=== PATIENT | female | born 1980 | race Caucasian/White ===

== ENCOUNTER 2016-12-25 15:57 | Emergency (ER) | payer BC | END 2016-12-25 17:34 | disposition left against medical advice (07) | LOC: UCCORT 15:57 | DX: M25.511 Pain in right shoulder (principal) ==

== ENCOUNTER 2016-12-25 18:27 | Emergency (ER) | payer BC ==
[2016-12-25 20:05] VITALS: BP 136/84
[2016-12-25] MEDS ORDERED: Ibuprofen TAB* 600 MG PO ONE (20:25)
--- NOTE | 2016-12-25 20:32 | UC ---
Shoulder Pain HPI - HPI Summary HPI Summary: 36 yo female with chronic right shoulder pain now with 5 day hx of decreased ROM and increased pain - History of Current Complaint Chief Complaint: UCUpperExtremity Stated Complaint: RT SHOULDER -NO RANGE OF MOTION Time Seen by Provider: 12/25/16 20:18 Hx Obtained From: Patient Hx Last Menstrual Period: 11/14/16, but she bleed for 5 weeks Onset/Duration: Gradual Onset, Lasting Weeks, Worse Since - 5 days Timing: Constant Severity Initially: Mild Severity Currently: Moderate Location Of Pain: Is Diffuse Pain Intensity: 6 Pain Scale Used: 0-10 Numeric Character: Aching, Spasmodic Aggravating Factor(s): Movement Alleviating Factor(s): Rest, OTC Meds Related History: Similar Episode/Dx As - Frozen shoulder, Dominant Hand Right - Allergies/Home Medications Allergies/Adverse Reactions: Allergies Allergy/AdvReac Type Severity Reaction Status Date / Time No Known Allergies Allergy Verified 03/30/16 17:16 PMH/Surg Hx/FS Hx/Imm Hx Endocrine History Of: Reports: Diabetes, Thyroid Disease - Hypothyroidism Cardiovascular History Of: Reports: Hypertension - Surgical History Surgical History: Yes Surgery Procedure, Year, and Place: tonsillectomy. 2003 - Family History Known Family History: Positive: Hypertension, Diabetes - Social History Alcohol Use: Weekly Alcohol Amount: 2 times a week Substance Use Type: None Smoking Status (MU): Former Smoker Type: Cigarettes Amount Used/How Often: 5 per day Length of Time of Smoking/Using Tobacco: 15 yrs Have You Smoked in the Last Year: Yes When Did the Patient Quit Smoking/Using Tobacco: 09/05/2015 - Immunization History Most Recent Influenza Vaccination: [id number] Most Recent Tetanus Shot: UNKNOWN Review of Systems Constitutional: Negative Skin: Negative Eyes: Negative ENT: Negative Respiratory: Negative Cardiovascular: Negative Gastrointestinal: Negative Genitourinary: Negative Motor: Negative Neurovascular: Negative Musculoskeletal: Arthralgia, Decreased ROM Neurological: Negative Psychological: Negative All Other Systems Reviewed And Are Negative: Yes Physical Exam Triage Information Reviewed: Yes Appearance: Well-Appearing, No Pain Distress, Well-Nourished Vital Signs: Initial Vital Signs Pulse 85 12/25/16 20:00 Resp 16 12/25/16 20:00 BP 136/84 12/25/16 20:00 Pulse Ox 98 12/25/16 20:00 Vital Signs Reviewed: Yes Eyes: Positive: Conjunctiva Clear ENT: Negative: Hearing grossly normal, Pharynx normal, Pharyngeal erythema, Nasal congestion, Nasal drainage, TMs normal, TM bulging, TM dull, TM red, Tonsillar swelling, Tonsillar exudate, Trismus, Muffled/hoarse voice Dental: Negative: Dental Fracture @, Abscess @ Neck: Positive: Supple, Nontender Respiratory: Positive: Lungs clear, Normal breath sounds, No respiratory distress Cardiovascular: Positive: RRR, No Murmur Musculoskeletal: Positive: ROM Limited @ - right shoulder-able to abduct to 45 degrees Neurological Exam: Normal Neurological: Positive: Alert, Fatigued Psychological Exam: Normal Skin Exam: Normal Shoulder Course/Dx - Differential Dx/Diagnosis Provider Diagnoses: right shoulder tendonitis. adhesive capsilitis Discharge - Discharge Plan Condition: Stable Disposition: HOME Prescriptions: Naproxen [Naproxen 500 MG TABS] 500 mg PO BID PRN #20 tab PRN Reason: Pain Patient Education Materials: Adhesive Capsulitis (ED), Tendinitis (ED) Referrals: Jhoan Martinez MD [Medical Doctor] - As Soon As Possible Additional Instructions: heat range of motion massage see orthopedist Images Front/Back of Body, Lg (Rapides): 1 - tender her, pain with external rotation
--- NOTE | 2016-12-25 21:01 | RAD ---
Indication: Right shoulder pain, decreased range of motion. 3 views of the right shoulder demonstrates no fracture. No other bone or joint abnormality is identified. IMPRESSION: No fracture of the right shoulder is noted.
== END 2016-12-25 21:04 | disposition home or self-care (01) ==
LOC: UCCORT 18:27
DX: M75.01 Adhesive capsulitis of right shoulder (principal); Z87.891 Personal history of nicotine dependence
CPT/HCPCS: 99212; A9270-GY; G0463

== ENCOUNTER 2017-04-05 14:08 | Emergency (ER) | payer BC ==
--- NOTE | 2017-04-05 14:26 | UC ---
Skin Complaint HPI - HPI Summary HPI Summary: had a hang nail last week pulled it off and now has pain and swelling around nail - History of Current Complaint Time Seen by Provider: 04/05/17 14:23 Stated Complaint: LEFT INDEX FINGER PAIN Hx Obtained From: Patient Hx Last Menstrual Period: 11/14/16, but she bleed for 5 weeks ?: No Onset/Duration: Sudden Onset, Lasting Weeks - 1, Still Present Timing: Constant Onset Severity: Mild Current Severity: Moderate Pain Intensity: 7 Pain Scale Used: 0-10 Numeric Character: Swelling, Pain, Redness Aggravating: Touch Alleviating: Nothing Associated Signs & Symptoms: Positive: Negative Related History: Trauma - Allergy/Home Medications Allergies/Adverse Reactions: Allergies Allergy/AdvReac Type Severity Reaction Status Date / Time Lisinopril Allergy Coughing Verified 04/05/17 14:38 Home Medications: Home Medications Ferrous Sulfate [Iron (Ferrous Sulfate)] 50 mg PO DAILY 04/05/17 [History Confirmed 04/05/17] Liraglutide (NF) [Victoza (NF)] 1.8 mg SUBCUT DAILY 04/05/17 [History Confirmed 04/05/17] Review of Systems Constitutional: Negative Skin: Other - erythema around left index finger nail bed with purulent drainage Eyes: Negative ENT: Negative Respiratory: Negative Cardiovascular: Negative Gastrointestinal: Negative Genitourinary: Negative Motor: Negative Neurovascular: Negative Musculoskeletal: Negative Neurological: Negative Psychological: Negative All Other Systems Reviewed And Are Negative: Yes PMH/Surg Hx/FS Hx/Imm Hx Previously Healthy: No Endocrine History: Diabetes, Hypothyroidism, Dyslipidemia Cardiovascular History: Hypertension - Surgical History Surgical History: Yes Surgery Procedure, Year, and Place: tonsillectomy. 2003 - Family History Known Family History: Positive: Hypertension, Diabetes - Social History Occupation: Employed Full-time Lives: With Family Alcohol Use: Weekly Alcohol Amount: 2 times a week Substance Use Type: None Smoking Status (MU): Former Smoker Type: Cigarettes Amount Used/How Often: 5 per day Length of Time of Smoking/Using Tobacco: 15 yrs Have You Smoked in the Last Year: Yes When Did the Patient Quit Smoking/Using Tobacco: 09/05/2015 - Immunization History Most Recent Influenza Vaccination: [id number] Most Recent Tetanus Shot: UNKNOWN Physical Exam Triage Information Reviewed: Yes Appearance: Well-Appearing, No Pain Distress, Well-Nourished Vital Signs Reviewed: Yes Eye Exam: Normal Eyes: Positive: Conjunctiva Clear ENT Exam: Normal ENT: Positive: Normal ENT inspection, Hearing grossly normal, Pharynx normal, TMs normal. Negative: Nasal congestion, Nasal drainage, Tonsillar swelling, Tonsillar exudate, Trismus, Muffled/hoarse voice Dental Exam: Normal Neck exam: Normal Neck: Positive: Supple, Nontender Respiratory Exam: Normal Respiratory: Positive: Chest non-tender, No respiratory distress, No accessory muscle use Cardiovascular Exam: Normal Cardiovascular: Positive: RRR, Pulses Normal, Brisk Capillary Refill Musculoskeletal Exam: Normal Musculoskeletal: Positive: Strength Intact, ROM Intact, Edema @ - distal left index finger Neurological Exam: Normal Neurological: Positive: Alert, Muscle Tone Normal Psychological Exam: Normal Skin Exam: Normal Course/Dx - Course Course Of Treatment: warm compress/ soak, Keflex, follow with pcp - Differential Diagnoses - Skin Complaint Differential Diagnoses: Cellulitis, Impetigo, Local Allergic Reaction - Diagnoses Provider Diagnoses: Left index finger paronychia Discharge - Discharge Plan Condition: Stable Disposition: HOME Prescriptions: Cephalexin CAP* [Keflex CAP*] 500 mg PO QID #28 cap Patient Education Materials: Cephalexin (By mouth), Paronychia (ED), Warm Compress or Soak (ED) Referrals: Karlie Sainz MD [Primary Care Provider] - If Needed
[2017-04-05 14:44] VITALS: BP 116/63
== END 2017-04-05 14:47 | disposition home or self-care (01) ==
LOC: UCCORT 14:08
DX: L03.012 Cellulitis of left finger (principal); E11.9 Type 2 diabetes mellitus without complications; E03.9 Hypothyroidism, unspecified; E78.5 Hyperlipidemia, unspecified; I10 Essential (primary) hypertension; Z87.891 Personal history of nicotine dependence
CPT/HCPCS: 99212; G0463

== ENCOUNTER 2017-11-11 11:08 | Emergency (ER) | payer BC ==
[2017-11-11 13:23] VITALS: BP 145/81
--- NOTE | 2017-11-11 13:37 | UC ---
Respiratory Complaint HPI - HPI Summary HPI Summary: nasal congestion x 2 days + cough , body aches , no fever, + chills - History of Current Complaint Chief Complaint: UCRespiratory Stated Complaint: CONGESTION Time Seen by Provider: 11/11/17 13:20 Hx Obtained From: Patient Hx Last Menstrual Period: mirana ?: No Onset/Duration: Gradual Onset, Lasting Days - 2, Still Present Severity Initially: Moderate Severity Currently: Moderate Pain Intensity: 0 Character: Cough: Nonproductive Aggravating Factors: Exertion Alleviating Factors: Nothing Associated Signs And Symptoms: Positive: Chills, URI, Nasal Congestion. Negative: Fever, Wheezing, Hemoptysis, Dizziness, Calf Pain, Calf Swelling, Hoarseness, Sinus Discomfort - Allergies/Home Medications Allergies/Adverse Reactions: Allergies Allergy/AdvReac Type Severity Reaction Status Date / Time lisinopril Allergy Coughing Verified 11/11/17 13:23 Home Medications: Home Medications Ibuprofen 800 mg PO 11/11/17 [History] PMH/Surg Hx/FS Hx/Imm Hx Endocrine History: Diabetes, Hypothyroidism - Surgical History Surgical History: Yes Surgery Procedure, Year, and Place: tonsillectomy. 2003 - Family History Known Family History: Positive: Hypertension, Diabetes - Social History Alcohol Use: Weekly Alcohol Amount: 2 times a week Substance Use Type: None Smoking Status (MU): Current Some Day Smoker Type: Cigarettes Amount Used/How Often: 5 per day Length of Time of Smoking/Using Tobacco: 15 yrs Have You Smoked in the Last Year: Yes When Did the Patient Quit Smoking/Using Tobacco: 09/05/2015 - Immunization History Most Recent Influenza Vaccination: [id number] Most Recent Tetanus Shot: UNKNOWN Review of Systems Constitutional: Chills, Fatigue Skin: Negative Eyes: Negative ENT: Sore Throat, Nasal Discharge Respiratory: Cough Cardiovascular: Negative Gastrointestinal: Negative Is Patient Immunocompromised?: No All Other Systems Reviewed And Are Negative: Yes Physical Exam Triage Information Reviewed: Yes Appearance: Well-Appearing, No Pain Distress, Obese Vital Signs: Initial Vital Signs Temp 98.1 F 11/11/17 13:16 Pulse 93 11/11/17 13:16 Resp 18 11/11/17 13:16 BP 145/81 11/11/17 13:16 Pulse Ox 100 11/11/17 13:16 Vital Signs Reviewed: Yes Eye Exam: Normal Eyes: Positive: Conjunctiva Clear ENT: Positive: Normal ENT inspection, Hearing grossly normal, Pharynx normal, Nasal congestion, TMs normal Neck: Positive: Supple, Nontender, No Lymphadenopathy Respiratory: Positive: Chest non-tender, Lungs clear, Normal breath sounds Cardiovascular: Positive: RRR, No Murmur, Pulses Normal Skin Exam: Normal UC Diagnostic Evaluation - Laboratory O2 Sat by Pulse Oximetry: 100 Respiratory Course/Dx - Differential Dx/Diagnosis Provider Diagnoses: uri Discharge - Discharge Plan Condition: Stable Disposition: HOME Patient Education Materials: Upper Respiratory Infection (DC) Forms: *Work Release Referrals: Karlie Sainz MD [Primary Care Provider] - If Needed
== END 2017-11-11 13:41 | disposition home or self-care (01) ==
LOC: UCCORT 11:08
DX: J06.9 Acute upper respiratory infection, unspecified (principal); E11.9 Type 2 diabetes mellitus without complications; Z72.0 Tobacco use
CPT/HCPCS: 99212; G0463

== ENCOUNTER 2018-12-10 10:42 | Emergency (ER) | payer BC ==
[2018-12-10 11:11] VITALS: BP 131/71
--- NOTE | 2018-12-10 11:25 | UC ---
Hand/Wrist HPI - HPI Summary HPI Summary: 38 yo female back handed a table 2 days ago tender left 2nd MCP she is right handed - History Of Current Complaint Chief Complaint: UCUpperExtremity Stated Complaint: LEFT HAND INJURY (12/08/18) Time Seen by Provider: 12/10/18 11:15 Hx Obtained From: Patient Hx Last Menstrual Period: mirana Onset/Duration: Sudden Onset Severity Initially: Moderate Severity Currently: Moderate Pain Intensity: 2 Pain Scale Used: 0-10 Numeric Character Of Pain: Aching, Throbbing Aggravating Factor(s): Movement Alleviating Factor(s): Rest Associated Signs And Symptoms: Positive: Swelling Related History: Dominant Hand Right Hands: 1 - tender/swollen - Allergies/Home Medications Allergies/Adverse Reactions: Allergies Allergy/AdvReac Type Severity Reaction Status Date / Time lisinopril Allergy Coughing Verified 11/11/17 13:23 Home Medications: Home Medications Diazepam TAB(*) [Valium TAB(*)] 10 mg PO Q8H PRN 12/10/18 [History Confirmed 04/23] Ibuprofen TAB* [Advil TAB*] 600 - 800 mg PO Q6H PRN 12/10/18 [History Confirmed 12/10/18] Levothyroxine TAB* [Synthroid TAB*] 125 mcg PO DAILY 12/10/18 [History Confirmed 12/10/18] PMH/Surg Hx/FS Hx/Imm Hx Previously Healthy: Yes Endocrine History: Diabetes, Dyslipidemia Cardiovascular History: Hypertension - Surgical History Surgical History: Yes Surgery Procedure, Year, and Place: Left Vitrectomy, 2018, [place]; , 2003; Tonsillectomy, ~1992 - Family History Known Family History: Positive: Hypertension, Diabetes - Social History Alcohol Use: Weekly Alcohol Amount: 2 times a week Substance Use Type: None Smoking Status (MU): Former Smoker Type: Cigarettes Amount Used/How Often: 5 per day Length of Time of Smoking/Using Tobacco: 10/09 PPD x 15 Years Have You Smoked in the Last Year: Yes When Did the Patient Quit Smoking/Using Tobacco: 09/05/2015 - Immunization History Most Recent Influenza Vaccination: [id number] Most Recent Tetanus Shot: UNKNOWN Review of Systems All Other Systems Reviewed And Are Negative: Yes Constitutional: Positive: Negative Skin: Positive: Negative Eyes: Positive: Negative ENT: Positive: Negative Respiratory: Positive: Negative Cardiovascular: Positive: Negative Gastrointestinal: Positive: Negative Genitourinary: Positive: Negative Motor: Positive: Negative Neurovascular: Positive: Negative Musculoskeletal: Positive: Arthralgia - left 2nd MCP Neurological: Positive: Negative Psychological: Positive: Negative Physical Exam Triage Information Reviewed: Yes Appearance: Well-Appearing, No Pain Distress, Well-Nourished Vital Signs: Initial Vital Signs Temp 98.2 F 12/10/18 11:04 Pulse 88 12/10/18 11:04 Resp 18 12/10/18 11:04 BP 131/71 12/10/18 11:04 Pulse Ox 100 12/10/18 11:04 Vital Signs Reviewed: Yes Eyes: Positive: Conjunctiva Clear ENT: Positive: Hearing grossly normal. Negative: Nasal congestion, Nasal drainage, Trismus, Muffled voice, Hoarse voice Neck: Positive: Supple, Nontender, No Lymphadenopathy Respiratory: Positive: Lungs clear, Normal breath sounds, No respiratory distress Cardiovascular: Positive: RRR, No Murmur Musculoskeletal: Positive: ROM Intact, Edema @ - see image Neurological: Positive: Alert Psychological Exam: Normal Skin Exam: Normal Diagnostics - Radiology No standard instances Radiology Interpretation Completed By: ED Physician Summary of Radiographic Findings: no fx Hand/Wrist Course/Dx - Differential Dx/Diagnosis Provider Diagnosis: Contusion of left hand Discharge - Sign-Out/Discharge Documenting (check all that apply): Patient Departure All imaging exams completed and their final reports reviewed: Yes - Discharge Plan Condition: Stable Disposition: HOME Patient Education Materials: Contusion in Adults (ED) Referrals: Yanet Sims NP [Primary Care Provider] - 2 Weeks (if not better) - Billing Disposition and Condition Condition: STABLE Disposition: Home
== END 2018-12-10 11:52 | disposition home or self-care (01) ==
LOC: UCCORT 10:42
DX: S60.222A Contusion of left hand, initial encounter (principal); E11.9 Type 2 diabetes mellitus without complications; I10 Essential (primary) hypertension; Z87.891 Personal history of nicotine dependence; Z88.8 Allergy status to other drugs, medicaments and biological substances; W22.03XA Walked into furniture, initial encounter; Y92.9 Unspecified place or not applicable
CPT/HCPCS: 99211; G0463

== ENCOUNTER 2019-05-23 18:46 | Emergency (ER) | payer BC ==
--- OUTSIDE RECORDS SUMMARY | 2019-05-23 18:55 | XMS REPORT | Continuity of Care Document ---
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 Onset: 02/08/2014 Hypothyroidism Sherin Armas M.D. Onset: 06/20/2015 Shoulder joint pain Simon Tinoco M.D. Onset: 03/27/2016 Diabetic macular edema Klaudia Sims FNP Onset: 05/09/2016 Note: Sees [facility] Allergic rhinitis Bianca Braun, WILMA-EHSAN, YANNA, Onset: 08/12/2016 Ibclc Nonalcoholic steatohepatitis ([place]) Klaudia Sims FNP Onset: 2016 Pure hypercholesterolemia Louisa Higginbotham MD Onset: 07/18/2017 Social History Type Date Description Comments Sex Unknown ETOH Use Currently consumes alcohol 2 DR/WEEK socially Tobacco Use Start: Unknown End: Patient is a former smoker Unknown Tobacco Use Start: Unknown Quit 09/04/15 1/2 PPD X 9 YRS, QUIT AT AGE 35 Smoking Status Reviewed: 05/18/19 Quit 09/04/15 1/2 PPD X 9 YRS, QUIT AT AGE 35 Allergies, Adverse Reactions, Alerts Active Allergies Reaction Severity Comments Date Lisinopril cough 07/16/2016 Inactive Allergies NKDA 02/14/2015 Medications Active Medications SIG Qnty Indications Ordering Date Provider Anel Allergy 1 by mouth as 90tabs Bianca Braun, 04/28/2019 60mg needed PNP-BC, [employer], Tablets Ibclc Onetouch Ultra Blue Use To Test 300units Calvin, 03/07/2019 Blood Sugar Four Jenfengferjose, Strips Times Daily [employer] Albuterol Sulfate HFA Inhale 2 Puffs 126units JimiRamona, 12/04/2018 By Mouth Every 3 [employer] 108(90Base) mcg/Act Hours as Needed Aerosol For Shortness Of Breath Ondansetron HCL 1 tab every 6hr 8tabs Calvin, 09/18/2018 4mg as needed for Jenniferleigh, Tablets nausea [employer] Levothyroxine Sodium Take 1 Tablet By 90tabs E03.9 Calvin, 06/30/2018 Mouth Every Day Jenniferjose, 125mcg Tablets In Place Of 100 [employer] mcg Dose Glucagon Emergency SQ or Im, february 3units E11.39 Karlie Sainz, 04/14/2018 1mg repeat in 15 M.D. Kit mins if not adequate response Cyclobenzaprine HCL take 1 tablet by 90tabs M62.838 Calvin, 01/13/2018 10mg mouth 3 times a Jenniferleifrancois, Tablets day as needed [employer] Valium 1 tab by every 14tabs F43.0 Calvin, 12/17/2017 10mg Tablets 12 hours as Klaudia, needed anxiety [employer] attack / flying MDD#2 Reference #: [id number] Victoza 1.8mg sq every 27units E11.65 Calvin, 09/19/2017 18mg/3ML Solution daily Klaudia Pen-Inject [employer] Insulin inject insulin 100units Calvin, 06/27/2017 Syringe/U-100/1ML/31G as directed Klaudia, X 5/16" [employer] 31G X 5/16" 1 ML Misc Blood Glucose Test test sugars four 100units E11.65 Clune, 01/07/2017 times a day day Klaudia Strips e11.9 [employer] Pentips use as directed 90units Cldee, 12/31/2016 31G X 5 mm Misc with insulin pen YANNA Rudolph Furosemide Take 1 Tablet By 90tabs R60.0 Calvin, 02/14/2015 20mg Tablets Mouth Every Jenniferlei, Morning [employer] Lantus inject 100 units [id number] Calvin, 02/10/2015 100Unit/ML twice a day..... Jenniferleigh, Solution give enough for [employer] 3months and titrate as directed Losartan Potassium Take 1 Tablet By 90tabs Clune, 07/20/2013 25mg Mouth Every Day Jenniferleigh, Tablets [employer] Janumet XR take 1 tablet by 90tabs une, 05/03/2013 100-1000mg mouth every day Jenniferleigh, Tablets ER 24HR [employer] Simvastatin take 1 tablet by 90tabs Calvin, 11/25/2011 20mg Tablets mouth [facility] day [facility] [place] Mirena (52 MG) inserted Unknown 20mcg/24HR 07/2017, removed IUD 07/2022 History Medications Nitrofurantoin Monohyd 1 by mouth twice a 20caps R39.15 Bianca Braun, - Macro day PNP-BC, [employer], 05/08/2019 100mg Capsules Ibclc Diflucan take 1 by mouth 1tabs R39.15 Bianca Braun, 04/28/2019 - 150mg Tablets once you finish PNP-BC, [employer], 05/06/2019 your antibiotics Ibclc if needed Eq Loratadine one PO qd 30tabs J30.9 Calvin, 02/16/2019 - 10mg [facility], 04/28/[address] [facility] [place] Azithromycin take 2 pills 6tabs Ramona Krause, 12/04/2018 - 250mg today, then 1 pill [employer] 12/10/2018 Tablets for the next 4 days. Ventolin HFA inhale 2 puffs by 18gm Ramona Krause, 12/04/2018 - 108(90Base) mouth every 3 [employer] 12/04/2018 mcg/Act Aerosol hours as needed for shortness of breath Immunizations CPT Code Status Date Vaccine Lot # [id number] Given 06/30/2018 Influenza Virus Vaccine, Quadrivalent, 36 Mos+, [id number] .5ML 57084 Given 07/15/2017 Influenza Virus Vaccine Quadrivalent Iiv4 [place] [id number] [address] Given 04/15/2017 Tdap injection 09814 Given 07/16/2016 Influenza Virus Vaccine, Quadrivalent, 36 Mos+, [id number] .5ML Q2038 Given 06/20/2015 Influenza Vaccine (Fluzone) Age 3 And Older [id number] Given 08/03/2013 flu vaccination 10006 Given 06/24/2012 flu vaccination 39912 Given 10/17/2009 H1N1 Immuniation Adminstration Vital Signs Date Vital Result Comment 05/18/2019 12:48pm BP Systolic Sitting Left Arm 124 mmHg BP Diastolic Sitting Left Arm 76 mmHg Body Temperature 97.9 F Heart Rate 80 /min Respiratory Rate 18 /min Height 71 inches 5'11" Weight 287.00 lb BMI (Body Mass Index) 40.0 kg/m2 BSA (Body Surface Area) 2.46 m2 Telephone body weight in kilograms 70 kg 04/28/2019 3:50pm BP Systolic 130 mmHg BP Diastolic 79 mmHg Heart Rate 90 /min Respiratory Rate 17 /min Height 71 inches 5'11" Telephone body weight in kilograms 70 kg Results Test Date Facility Test Result H/L Range Note Glycohemoglobin A1c [facility] [address] Glycohemoglobin 6.4 % High 4.2-6.3 1, [address] (A1c) [place] [address] [phone] eAG 137 mg/dL Laboratory 05/18/2019 [facility] [address] Thyroid 1.62 uIU/mL Normal 0.30- 4.20 test finding [address] [place] [address] Hormone [phone] Urine Culture 04/28/2019 [facility] Urine URETHRAL [address] [place] [place] [address] [phone] Quantity 10,000 - 50,000 <SEE NOTE> 4 Ua Routine 04/28/2019 [facility] Inhouse Ua Specific [place] 1.025 1.010-1.030 Ua PH 6.0 Low 6.5-7.5 Ua Color Yellow Yellow Ua Appera cloudy Ua WBC 1+ Ua Protein 0.15 High Negative Ua Glucose neg Negative Ua Ketones neg Negative Ua Bilirubin neg Negative Ua Urobilinogen 3.5 High 0.2 - 1.0 E.U./dL Ua Nitrite neg Negative Glycohemoglobin 02/16/2019 [facility] [address] Glycohemoglobin 5.8 % Normal 4.2-6.3 5, [address] (A1c) [place] [address] [phone] eAG 120 mg/dL Urine Dipstick 02/16/2019 [facility] Inhouse Ua Leuko - Negative Ua Nitrite - Negative Ua Urobilinogen .2 0.2 - 1.0 E.U./dL Ua Protein - Negative Ua PH 6 Low 6.5-7.5 Ua Blood - Negative Ua Specific [place] 1.015 1.010-1.030 Ua Ketones - Negative Ua Bilirubin - Negative Ua Glucose - Negative 1 E11.39 E03.9 2 Elevated levels of HbA1c suggest the need for more aggressive treatment of glycemia. The [place] [employer] recommends that a primary goal of therapy should be a HbA1c of <7% and that physicians should re-evaluate the treatment regimen in patients with HbA1c values consistently >8%. 3 R39.15 4 10,000 - 50,000 CFU/mL 5 E11.39 6 Elevated levels of HbA1c suggest the need for more aggressive treatment of glycemia. The [place] [employer] recommends that a primary goal of therapy should be a HbA1c of <7% and that physicians should re-evaluate the treatment regimen in patients with HbA1c values consistently >8%. Procedures Date Code Description Status 01/29/2018 [id number] Diabetic Foot Exam Completed Medical Devices Description No Information Available Encounters Type Date Location Provider Dx Diagnosis Office Visit 04/28/2019 Family [facility] Bianca Braun, R39.15 Urgency of 3:45p [address] PNP-BC, [employer], urination Ibclc R30.0 Dysuria Office Visit 02/16/2019 Family Sims, E11.39 Type 2 diabetes w 8:[facility]a [facility] YANNA Rudolph oth diabetic RD ophthalmic complication M94.0 Chondrocostal junction syndrome [Tietze] I10 Essential (primary) hypertension J30.9 Allergic rhinitis, unspecified Office Visit 12/04/2018 11:30a [facility] Ramona Gil, J20.9 Acute bronchitis, [address] YANNA unspecified R06.2 Wheezing Assessments Date Code Description Provider 05/18/2019 E11.39 Type 2 diabetes mellitus with other Klaudia Sims FNP diabetic ophthalmic comp 05/18/2019 E03.9 Hypothyroidism, unspecified Kluadia Sims FNP 05/18/2019 E78.5 Hyperlipidemia, unspecified Klaudia Sims FNP 05/18/2019 R10.815 Periumbilic abdominal tenderness Klaudia Sims FNP 04/28/2019 R39.15 Urgency of urination Bianca Braun PNP-BC, [employer], Ibclc 04/28/2019 R30.0 Dysuria Bianca Braun PNP-BC, [employer], [facility] 02/16/2019 E11.39 Type 2 diabetes mellitus with other Klaudia Sims FNP diabetic ophthalmic comp 02/16/2019 M94.0 Chondrocostal junction syndrome Klaudia Sims FNP [Gypsy] 02/16/2019 I10 Essential (primary) hypertension Klaudia Sims FNP 02/16/2019 J30.9 Allergic rhinitis, unspecified Klaudia Sims FNP 12/04/2018 J20.9 Acute bronchitis, unspecified Ramona Krause FNP 12/04/2018 R06.2 Wheezing Ramona Krause FNP Plan of Treatment Future Appointment(s):08/17/2019 2:00 pm - Klaudia Sims FNP at [facility] RD05/18/2019 - Klaudia Sims FNPE11.39 Type 2 diabetes mellitus with other diabetic ophthalmic compComments:Presumed controlled based on sugars, however concerning that there have been some low sugars, may need to decrease insulin - will wait for A1C resultsdiscussed finding ways to increase night time activity after play is over to help prevent 8 pm snacking, - walking dog at night pjwmmvttroW79.9 Hypothyroidism, unspecifiedComments:labs up to date , no symptoms at this time continue on current doseE78.5 Hyperlipidemia, lmoszsiefgcR74.815 Periumbilic abdominal tendernessComments:Discussed S/Sx of possible strangulation for which to seek a higher level of care incuding but not limited to the area becoming firm, red, non-reducible.Will get abdominal U/S Functional Status Functional Condition Comment Date Status Glasses Active Mental Status Description No Information Available Referrals Description No Information Available
--- OUTSIDE RECORDS SUMMARY | 2019-05-23 18:55 | XMS REPORT | Continuity of Care Document ---
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 Onset: 02/08/2014 Hypothyroidism Sherin Santana M.D. Onset: 06/20/2015 Shoulder joint pain Simon Tinoco M.D. Onset: 03/27/2016 Diabetic macular edema Klaudia Sims FNP Onset: 05/09/2016 Note: Sees [facility] Allergic rhinitis Bianca Braun PNP-BC, FNP, Onset: 08/12/2016 Ibclc Nonalcoholic steatohepatitis ([place]) Klaudia Sims FNP Onset: 2016 Pure hypercholesterolemia Louisa Higginbotham MD Onset: 07/18/2017 Family History Date Family Member(s) Observation Comments Father Diabetes First Sister Fibromyalgia Second Sister Hyperthyroidism Graves Paternal Grandfather due to Heart Attack () Paternal Grandfather Heart Disease Maternal Grandfather due to Lung Cancer () Maternal Grandfather Lung Cancer Social History Type Date Description Comments Sex Unknown Lives With Lives With Daughter Occupation [employer] ETOH Use Currently consumes alcohol 2 DR/WEEK socially Tobacco Use Start: Unknown End: Patient is a former smoker Unknown Tobacco Use Start: Unknown Quit 09/04/15 1/2 PPD X 9 YRS, QUIT AT AGE 35 Smoking Status Reviewed: 04/28/19 Quit 09/04/15 1/2 PPD X 9 YRS, QUIT AT AGE 35 Allergies, Adverse Reactions, Alerts Active Allergies Reaction Severity Comments Date Lisinopril cough 07/16/2016 Inactive Allergies NKDA 02/14/2015 Medications Active Medications SIG Qnty Indications Ordering Date Provider Anel Allergy 1 by mouth as 90tabs Bianca Braun, 04/28/2019 60mg needed PNP-BC, FACILITY ENGINEER, Tablets Ibclc Nitrofurantoin Monohyd 1 by mouth twice 20caps R39.15 Bianca Braun, 04/28 Macro a day PNP-BC, FACILITY ENGINEER, 100mg Capsules Ibclc Diflucan take 1 by mouth 1tabs R39.15 Bianca Braun, 04/28/2019 150mg Tablets once you finish PNP-BC, FACILITY ENGINEER, your antibiotics Ibclc if needed Onetouch Ultra Blue Use To Test Blood 300units Bethany, 03/07/2019 Sugar Four Times Jenfengferjose, Strips Daily FACILITY ENGINEER Azithromycin take 2 pills 6tabs Ramona Krause, 12/04/2018 250mg today, then 1 FACILITY ENGINEER Tablets pill for the next 4 days. Albuterol Sulfate HFA Inhale 2 Puffs By 126units Ramona Krause, 12/04/2018 Mouth Every 3 FACILITY ENGINEER 108(90Base) mcg/Act Hours as Needed Aerosol For Shortness Of Breath Ondansetron HCL 1 tab every 6hr 8tabs Cldee, 09/18/2018 4mg as needed for Jenniferleigh, Tablets nausea FACILITY ENGINEER Levothyroxine Sodium take 1 tablet by 90tabs E03.9 [facility], 06/30/2018 mouth every day Jenniferleigh, 125mcg Tablets in place of 100 FACILITY ENGINEER mcg dose Glucagon Emergency SQ or Im, february 3units E11.39 Karlie Sainz, 04/14/2018 1mg repeat in 15 mins M.D. Kit if not adequate response Cyclobenzaprine HCL take 1 tablet by 90tabs M62.838 [facility], 01/13/2018 10mg mouth 3 times a Yaquelinferjose, Tablets day as needed FACILITY ENGINEER Valium 1 tab by every 12 14tabs F43.0 [place], 12/17/2017 10mg Tablets hours as needed Klaudia anxiety attack / FACILITY ENGINEER flying MDD#2 Reference #: [id number] Victoza 1.8mg sq every 27units E11.65 [place], 09/19/2017 18mg/3ML Solution daily Klaudia Pen-Inject FACILITY ENGINEER Insulin inject insulin as 100units [place], 06/27/2017 Syringe/U-100/1ML/31G directed Klaudia X 02/18" FACILITY ENGINEER 31G X 16" 1 ML Misc Blood Glucose Test test sugars four 100units E11.65 [place], 01/07/2017 times a day day Klaudia Strips e11.9 YANNA Pentips use as directed 90units [place], 12/31/2016 31G X 5 mm Misc with insulin pen YANNA Rudolph Furosemide Take 1 Tablet By 30tabs R60.0 [place], 02/14/2015 20mg Tablets Mouth Every Yaquelinferleigh, Morning YANNA Lantus inject 100 units [id number] [place], 02/10/2015 100Unit/ML twice a day..... Klaudia Solution give enough for FACILITY ENGINEER 3months and titrate as directed Losartan Potassium take 1 tablet by 90tabs [place], 07/20/2013 25mg mouth every day Klaudia Tablets YANNA Janumet XR take 1 tablet by 90tabs [place], 05/03/2013 100-1000mg mouth every day Klaudia Tablets ER 24HR FACILITY ENGINEER Simvastatin take 1 tablet by 90tabs une, 11/25/2011 20mg Tablets mouth every day YANNA Rudolph Mirena (52 MG) inserted 07/2017, Unknown 20mcg/24HR removed 07/2022 IUD History Medications Eq Loratadine one PO qd 30tabs J30.9 [place], 02/16/2019 - 10mg Tablets Klaudia, 04/28/2019 FACILITY ENGINEER Ventolin HFA inhale 2 puffs 18gm Ramona Krause, FACILITY ENGINEER 12/04/2018 - 108(90Base) by mouth every 12/04/2018 mcg/Act Aerosol 3 hours as needed for shortness of breath Amoxicillin/Clavulanate one by mouth 20tabs J01.90 [place], 10/20/2018 - Potassium twice a day x Klaudia, 10/30/2018 500-125mg Tablets 10 days FACILITY ENGINEER Diflucan take 1 by mouth 1tabs J01.90 [place], 10/20/2018 - 150mg Tablets after Klaudia, 12/04/2018 completing FACILITY ENGINEER antibiotics Zyrtec-D Allergy & 1 tab PO q12h 60tabs J06.9 [employer] Salcedo MD 08/24/2018 - Congestion prn 12/04/2018 5-120mg Tablets ER 12HR Cyclobenzaprine HCL 1-2 tabs by 30tabs M62.838 Karlie Sainz M.D. 2017 - 5mg mouth every 01/13/2018 Tablets night at bedtime Saxenda 3mg SQ Q daily 15ml E11.65 Karlie Sainz M.D. 09/18/2017 - 18mg/3ML Solution 10/14/2017 Pen-Inject Insulin Syringe/1ML/31G use to inject 100units Karlie Sainz M.D. 2016 - X 02/18" insulin 06/27/2017 1ML/31G Misc Omeprazole 1 by mouth 90caps R10.11 [place], 05/15/2017 - 20mg Capsules DR every day Klaudia, 07/15/2017 FACILITY ENGINEER Trazodone HCL Take One Tablet 30tabs Karlie Sainz M.D. 03/05/2017 - 50mg Tablets By Mouth Every 04/15/2017 Day AT Bedtime Medroxyprogesterone 1 tab by mouth 10tabs Karlie Sainz M.D. 02/18/2017 - Acetate every daily for 04/15/2017 10mg Tablets bleeding Microgestin 24 Fe take 1 tablet 28tabs N94.6 Karlie Sainz M.D. 01/24/2017 - by mouth daily 02/18/2017 1-20mg-mcg Tablets for control Trazodone HCL take one tablet 30tabs G47.00 Karlie Sainz M.D. 01/07/2017 - 50mg Tablets by mouth every 01/24/2017 day at bedtime Victoza 3mg sq every 27ml E11.65 Karlie Sainz M.D. 01/07/2017 - 18mg/3ML Solution daily 09/18/2017 Pen-Inject Humalog Kwikpen Give 15 mins 3ml E11.65 Bianca Braun, 12/31/2016 - 100Unit/ML before meal. If PNP-BC, FACILITY ENGINEER, 04/15/2017 Solution Pen-Inject pre-meal sugar Ibclc less than 100=0U; 100-150=2U; 150-200=5U and over 200=10U Diflucan take 1 by mouth 1tabs [place], 08/16/2016 - 150mg Tablets Klaudia, 10/15/2016 FACILITY ENGINEER Augmentin 1 tab by mouth 20tabs J01.90 Bianca Braun, 08/12/2016 - 875-125mg Tablets twice a day for PNP-BC, FACILITY ENGINEER, 10/15/2016 10 days Ibclc Naproxen 500 mg by mouth 30tabs M54.5 Karlie Sainz M.D. 07/16/2016 - 500mg Tablets every 12 hours 12/04/2016 as needed pain Tramadol HCL take one to two 30tabs R10.9 Chanda, 04/01/2016 - 50mg Tablets tablets by Fidel Duff 07/16/2016 mouth 4 times daily (max daily dose is 8 tabs)....Refere [facility] #: [id number] Insulin Syringe/1ML/31G use to inject 100units Chanda, 03/19/2016 - X 02/18" insulin Fidel Duff 03/27/2016 1ML/31G Misc Anel Allergy 1 by mouth Karlie Sainz M.D. 02/14/2016 - 180mg every day prn 03/27/2016 Tablets Cyclobenzaprine HCL 1-2 tabs by 30tabs M25.511 Karlie Sainz M.D. 2015 - 5mg mouth every 03/27/2016 Tablets night at bedtime Valium 1 by mouth 2tabs Chanda, 01/09/2016 - 5mg Tablets before medical Fidel Duff 02/14/2016 proceedure. May repeat x1 as needed....Refer ence #: [id number] Amoxicillin 1 twice times a 14tabs K11.20 Chanda, 10/30/2015 - 500mg Tablets day Fidel Duff 11/06/2015 Azithromycin 2 today then 1 6tabs J15.8 Chanda, 09/12/2015 - 250mg Tablets a day for 4 Fidel Duff 09/17/2015 days Acetaminophen-Codeine 1-2 by mouth 30tabs J15.8 Chanda, 09/12/2015 - #3 every 4 hours Fidel Duff 10/24/2015 300-30mg Tablets as needed for cough or pain...Referenc e #: [id number] Chantix one twice a day 60tabs Z72.0 Chanda, 08/01/2015 - 1mg Tablets Fidel Duff 10/24/2015 Levothyroxine Sodium 1 By Mouth 90tabs Karlie Sainz M.D. 06/21/2015 - 100mcg Every Day 06/30/2018 Tablets Levothyroxine Sodium 1 by mouth 90tabs Chanda, 02/15/2015 - 50mcg every day Fidel Duff 06/21/2015 Tablets OneYulex Ultra System use to check BS 1unperez Santana, 10/18/2014 - one to three MD Sherin 03/27/2016 w/Device Kit times a day Onetouch Ultra Blue test twice 200units Chanda, 08/18/2012 - Strips daily and as Fidel Duff 03/27/2016 needed as directed Ibuprofen 1 tab every 6 Unknown - 400mg Tablets hours as needed 03/27/2016 Claritin 1 by mouth 30caps Chanda, - 10mg Capsules every day Fidel Duff 02/14/2016 Milena Araujo prn Chanda, - 10-200mg/5ML Fidel Duff 03/27/2016 Liquid Ibuprofen Unknown - 07/10/2017 Anel Allergy Unknown - 12/31/2016 Tylenol Arthritis Pain Unknown - 01/24/2017 Cyclobenzaprine HCL Unknown - 5mg 07/16/2016 Tablets Immunizations CPT Code Status Date Vaccine Lot # [id number] Given 06/30/2018 Influenza Virus Vaccine, Quadrivalent, 36 Mos+, [id number] .5ML 32735 Given 07/15/2017 Influenza Virus Vaccine Quadrivalent Iiv4 [place] [id number] [address] Given 04/15/2017 Tdap injection 94955 Given 07/16/2016 Influenza Virus Vaccine, Quadrivalent, 36 Mos+, [id number] .5ML Q2038 Given 06/20/2015 Influenza Vaccine (Fluzone) Age 3 And Older [id number] 87897 Given 08/03/2013 flu vaccination 52483 Given 06/24/2012 flu vaccination 74243 Given 10/17/2009 H1N1 Immuniation Adminstration Vital Signs Date Vital Result Comment 04/28/2019 3:50pm BP Systolic 130 mmHg BP Diastolic 79 mmHg Heart Rate 90 /min Respiratory Rate 17 /min Height 71 inches 5'11" [place] body weight in kilograms 70 kg 02/16/2019 8:48am BP Systolic Sitting Left Arm 128 mmHg BP Diastolic Sitting Left Arm 82 mmHg Heart Rate 88 /min Respiratory Rate 18 /min Height 71 inches 5'11" Weight 291.00 lb BMI (Body Mass Index) 40.6 kg/m2 BSA (Body Surface Area) 2.47 m2 [place] body weight in kilograms 70 kg 12/04/2018 11:27am BP Systolic 126 mmHg BP Diastolic 78 mmHg Body Temperature 98.7 F Heart Rate 88 /min Respiratory Rate 18 /min Height 71 inches 5'11" Weight 293.38 lb BMI (Body Mass Index) 40.9 kg/m2 BSA (Body Surface Area) 2.48 m2 [place] body weight in kilograms 70 kg O2 % BldC Oximetry 98 % Ra 10/20/2018 1:03pm BP Systolic 132 mmHg BP Diastolic 82 mmHg Heart Rate 76 /min Respiratory Rate 18 /min Height 71 inches 5'11" Weight 288.00 lb BMI (Body Mass Index) 40.2 kg/m2 BSA (Body Surface Area) 2.46 m2 [place] body weight in kilograms 70 kg 08/24/2018 4:11pm BP Systolic Sitting Left Arm 130 mmHg BP Diastolic Sitting Left Arm 84 mmHg Body Temperature 98.4 F Heart Rate 92 /min Respiratory Rate 20 /min Height 71 inches 5'11" Weight 288.00 lb BMI (Body Mass Index) 40.2 kg/m2 BSA (Body Surface Area) 2.46 m2 [place] body weight in kilograms 70 kg 07/21/2018 1:36pm BP Systolic Sitting Left Arm 126 mmHg BP Diastolic Sitting Left Arm 74 mmHg Heart Rate 88 /min Respiratory Rate 18 /min Height 71 inches 5'11" Weight 285.00 lb BMI (Body Mass Index) 39.7 kg/m2 BSA (Body Surface Area) 2.45 m2 [place] body weight in kilograms 70 kg 06/30/2018 11:00am BP Systolic Sitting Left Arm 128 mmHg BP Diastolic Sitting Left Arm 74 mmHg Heart Rate 88 /min Respiratory Rate 18 /min Height 71 inches 5'11" Weight 282.00 lb BMI (Body Mass Index) 39.3 kg/m2 BSA (Body Surface Area) 2.44 m2 [place] body weight in kilograms 70 kg 04/14/2018 2:40pm BP Systolic Sitting Left Arm 126 mmHg BP Diastolic Sitting Left Arm 72 mmHg Body Temperature 97.5 F Heart Rate 80 /min Height 71 inches 5'11" Weight 284.50 lb BMI (Body Mass Index) 39.7 kg/m2 BSA (Body Surface Area) 2.45 m2 [place] body weight in kilograms 70 kg 01/13/2018 1:35pm BP Systolic Sitting Left Arm 120 mmHg BP Diastolic Sitting Left Arm 72 mmHg Body Temperature 97.5 F Height 70 inches 5'10" Weight 283.25 lb BMI (Body Mass Index) 40.6 kg/m2 BSA (Body Surface Area) 2.42 m2 [place] body weight in kilograms 68 kg 12/17/2017 2:03pm BP Systolic Sitting Left Arm 126 mmHg BP Diastolic Sitting Left Arm 68 mmHg Height 71 inches 5'11" Weight 276.25 lb BMI (Body Mass Index) 38.5 kg/m2 BSA (Body Surface Area) 2.42 m2 [place] body weight in kilograms 70 kg 10/14/2017 12:55pm BP Systolic Sitting Left Arm 128 mmHg BP Diastolic Sitting Left Arm 80 mmHg Height 71 inches 5'11" Weight 275.50 lb BMI (Body Mass Index) 38.4 kg/m2 BSA (Body Surface Area) 2.42 m2 [place] body weight in kilograms 70 kg 09/19/2017 1:48pm BP Systolic 132 mmHg BP Diastolic 80 mmHg Body Temperature 97.9 F Heart Rate 89 /min Respiratory Rate 18 /min Height 71 inches 5'11" Weight 274.00 lb BMI (Body Mass Index) 38.2 kg/m2 BSA (Body Surface Area) 2.41 m2 [place] body weight in kilograms 70 kg O2 % BldC Oximetry 97 % 07/18/2017 1:09pm BP Systolic 116 mmHg BP Diastolic 72 mmHg Heart Rate 103 /min Height 71 inches 5'11" Weight 266.00 lb BMI (Body Mass Index) 37.1 kg/m2 BSA (Body Surface Area) 2.38 m2 [place] body weight in kilograms 70 kg 07/15/2017 1:22pm BP Systolic Sitting Left Arm 112 mmHg BP Diastolic Sitting Left Arm 70 mmHg Height 71 inches 5'11" Weight 266.12 lb BMI (Body Mass Index) 37.1 kg/m2 BSA (Body Surface Area) 2.38 m2 [place] body weight in kilograms 70 kg 05/29/2017 2:02pm BP Systolic 110 mmHg BP Diastolic 72 mmHg Heart Rate 92 /min Height 71 inches 5'11" Weight 276.00 lb BMI (Body Mass Index) 38.5 kg/m2 BSA (Body Surface Area) 2.42 m2 [place] body weight in kilograms 70 kg 05/15/2017 3:58pm BP Systolic 104 mmHg BP Diastolic 62 mmHg Height 71 inches 5'11" Weight 276.50 lb BMI (Body Mass Index) 38.6 kg/m2 BSA (Body Surface Area) 2.42 m2 [place] body weight in kilograms 70 kg 04/15/2017 1:17pm BP Systolic Sitting Left Arm 118 mmHg large cuff BP Diastolic Sitting Left Arm 78 mmHg large cuff Height 71 inches 5'11" Weight 292.00 lb BMI (Body Mass Index) 40.7 kg/m2 BSA (Body Surface Area) 2.48 m2 [place] body weight in kilograms 70 kg 02/04/2017 1:58pm BP Systolic Sitting Left Arm 122 mmHg large cuff BP Diastolic Sitting Left Arm 78 mmHg large cuff Height 70.6 inches 5'10.60" Weight 295.00 lb BMI (Body Mass Index) 41.6 kg/m2 BSA (Body Surface Area) 2.48 m2 [place] body weight in kilograms 69 kg 01/24/2017 10:56am BP Systolic Sitting Right Arm 132 mmHg BP Diastolic Sitting Right Arm 74 mmHg Heart Rate 58 /min Height 71 inches 5'11" Weight 300.38 lb BMI (Body Mass Index) 41.9 kg/m2 BSA (Body Surface Area) 2.51 m2 Last Menstrual Period [id number] current-started 01-01-17 01/07/2017 9:41am BP Systolic Sitting Left Arm 138 mmHg BP Diastolic Sitting Left Arm 74 mmHg Body Temperature 97.8 F Heart Rate 84 /min Respiratory Rate 18 /min Height 71 inches 5'11" Weight 302.25 lb BMI (Body Mass Index) 42.2 kg/m2 BSA (Body Surface Area) 2.51 m2 [place] body weight in kilograms 70 kg 12/31/2016 9:22am BP Systolic 0 mmHg BP Diastolic 0 mmHg BP Systolic Sitting Left Arm 138 mmHg BP Diastolic Sitting Left Arm 72 mmHg Body Temperature 98.0 F Heart Rate 88 /min Weight 304.25 lb 12/04/2016 11:24am BP Systolic 124 mmHg BP Diastolic 70 mmHg Body Temperature 98.4 F Heart Rate 82 /min Respiratory Rate 16 /min Height 68 inches 5'8" Weight 307.00 lb BMI (Body Mass Index) 46.7 kg/m2 BSA (Body Surface Area) 2.45 m2 Last Menstrual Period [id number] O2 % BldC Oximetry 97 % 10/15/2016 12:51pm BP Systolic Sitting Left Arm 118 mmHg BP Diastolic Sitting Left Arm 70 mmHg Height 68 inches 5'8" Weight 308.50 lb BMI (Body Mass Index) 46.9 kg/m2 BSA (Body Surface Area) 2.46 m2 [place] body weight in kilograms 63 kg 08/12/2016 1:06pm BP Systolic Sitting Left Arm 118 mmHg BP Diastolic Sitting Left Arm 72 mmHg Body Temperature 98.2 F Height 71 inches 5'11" Weight 306.00 lb BMI (Body Mass Index) 42.7 kg/m2 BSA (Body Surface Area) 2.53 m2 [place] body weight in kilograms 70 kg 07/16/2016 1:48pm BP Systolic Sitting Left Arm 116 mmHg Large Cuf BP Diastolic Sitting Left Arm 78 mmHg Large Cuf Height 71 inches 5'11" Weight 306.00 lb BMI (Body Mass Index) 42.7 kg/m2 BSA (Body Surface Area) 2.53 m2 [place] body weight in kilograms 70 kg 04/01/2016 11:10am BP Systolic Sitting Left Arm 112 mmHg BP Diastolic Sitting Left Arm 72 mmHg Body Temperature 98.5 F Heart Rate 80 /min Respiratory Rate 18 /min Height 70.5 inches 5'10.50" Weight 303.00 lb BMI (Body Mass Index) 42.9 kg/m2 BSA (Body Surface Area) 2.50 m2 [place] body weight in kilograms 69 kg 03/27/2016 3:34pm BP Systolic 115 mmHg BP Diastolic 78 mmHg Heart Rate 87 /min Height 70.5 inches 5'10.50" Weight 302.00 lb BMI (Body Mass Index) 42.7 kg/m2 BSA (Body Surface Area) 2.50 m2 [place] body weight in kilograms 69 kg 02/28/2016 1:30pm Height 71 inches 5'11" Weight 297.00 lb BMI (Body Mass Index) 41.4 kg/m2 BSA (Body Surface Area) 2.49 m2 02/27/2016 1:09pm BP Systolic Sitting Left Arm 118 mmHg BP Diastolic Sitting Left Arm 64 mmHg Heart Rate 78 /min Respiratory Rate 18 /min Height 71 inches 5'11" Weight 298.00 lb BMI (Body Mass Index) 41.6 kg/m2 BSA (Body Surface Area) 2.50 m2 Last Menstrual Period [id number] O2 % BldC Oximetry 98 % 02/14/2016 10:19am BP Systolic Sitting Left Arm 126 mmHg BP Diastolic Sitting Left Arm 72 mmHg Height 71 inches 5'11" Weight 299.38 lb BMI (Body Mass Index) 41.7 kg/m2 BSA (Body Surface Area) 2.50 m2 Last Menstrual Period [id number] Pain Level 8 11/29/2015 1:46pm Height 71 inches 5'11" Weight 301.00 lb BMI (Body Mass Index) 42.0 kg/m2 BSA (Body Surface Area) 2.51 m2 11/08/2015 2:09pm Height 71 inches 5'11" Weight 304.00 lb BMI (Body Mass Index) 42.4 kg/m2 BSA (Body Surface Area) 2.52 m2 10/30/2015 1:05pm BP Systolic Sitting Left Arm 118 mmHg BP Diastolic Sitting Left Arm 72 mmHg Body Temperature 99.5 F Heart Rate 72 /min Respiratory Rate 19 /min Height 71 inches 5'11" Weight 303.00 lb BMI (Body Mass Index) 42.3 kg/m2 BSA (Body Surface Area) 2.52 m2 10/24/2015 12:57pm BP Systolic Sitting Left Arm 138 mmHg BP Diastolic Sitting Left Arm 76 mmHg Heart Rate 80 /min Respiratory Rate 19 /min Height 71 inches 5'11" Weight 304.00 lb BMI (Body Mass Index) 42.4 kg/m2 BSA (Body Surface Area) 2.52 m2 09/12/2015 11:10am BP Systolic Sitting Left Arm 118 mmHg BP Diastolic Sitting Left Arm 66 mmHg Body Temperature 99.1 F Heart Rate 74 /min Respiratory Rate 20 /min Height 71 inches 5'11" Weight 295.00 lb BMI (Body Mass Index) 41.1 kg/m2 BSA (Body Surface Area) 2.49 m2 08/01/2015 1:06pm BP Systolic Sitting Left Arm 118 mmHg BP Diastolic Sitting Left Arm 66 mmHg Heart Rate 80 /min Respiratory Rate 20 /min Height 71 inches 5'11" Weight 296.00 lb BMI (Body Mass Index) 41.3 kg/m2 BSA (Body Surface Area) 2.49 m2 Last Menstrual Period [id number] 06/20/2015 1:00pm BP Systolic Sitting Left Arm 108 mmHg BP Diastolic Sitting Left Arm 62 mmHg Heart Rate 72 /min Respiratory Rate 19 /min Height 71 inches 5'11" Weight 288.00 lb BMI (Body Mass Index) 40.2 kg/m2 BSA (Body Surface Area) 2.46 m2 02/14/2015 1:03pm BP Systolic Sitting Left Arm 102 mmHg BP Diastolic Sitting Left Arm 68 mmHg Heart Rate 82 /min Respiratory Rate 19 /min Height 71 inches 5'11" Weight 293.00 lb BMI (Body Mass Index) 40.9 kg/m2 BSA (Body Surface Area) 2.48 m2 12/12/2014 2:39pm BP Systolic 124 mmHg BP Diastolic 86 mmHg Body Temperature 97.8 F Weight 286.00 lb 10/18/2014 1:19pm BP Systolic 126 mmHg BP Diastolic 74 mmHg Heart Rate 74 /min Height 71 inches 5'11" Weight 284.00 lb 06/14/2014 1:35pm BP Systolic 124 mmHg BP Diastolic 72 mmHg Heart Rate 78 /min Height 71 inches 5'11" Weight 276.00 lb 05/20/2014 11:05am BP Systolic 114 mmHg BP Diastolic 70 mmHg Body Temperature 98.2 F Weight 275.00 lb O2 % BldC Oximetry 97 % 02/08/2014 1:10pm BP Systolic 124 mmHg BP Diastolic 66 mmHg Heart Rate 72 /min Height 71 inches 5'11" Weight 272.00 lb 11/09/2013 4:24pm BP Systolic 122 mmHg BP Diastolic 72 mmHg Heart Rate 68 /min Height 71 inches 5'11" Weight 276.00 lb 11/02/2013 1:23pm BP Systolic 124 mmHg BP Diastolic 72 mmHg Heart Rate 80 /min Height 71 inches 5'11" Weight 278.00 lb 10/07/2013 11:54am BP Systolic 140 mmHg BP Diastolic 72 mmHg Body Temperature 98.4 F Heart Rate 88 /min Height 71 inches 5'11" Weight 276.00 lb 09/20/2013 10:38am BP Systolic 140 mmHg BP Diastolic 84 mmHg Body Temperature 99.1 F Heart Rate 88 /min Weight 277.00 lb 09/13/2013 11:13am BP Systolic 120 mmHg BP Diastolic 88 mmHg Body Temperature 98.3 F Heart Rate 84 /min Weight 275.00 lb 08/26/2013 2:36pm BP Systolic 146 mmHg BP Diastolic 72 mmHg Height 71 inches 5'11" Weight 272.00 lb 08/03/2013 1:10pm BP Systolic 122 mmHg BP Diastolic 66 mmHg Heart Rate 72 /min Height 71 inches 5'11" Weight 273.00 lb 07/20/2013 11:33am BP Systolic 134 mmHg BP Diastolic 90 mmHg Height 71 inches 5'11" Weight 274.00 lb 05/12/2013 2:10pm BP Systolic 138 mmHg regular cuff BP Diastolic 72 mmHg regular cuff Heart Rate 104 /min Height 71 inches 5'11" Weight 274.00 lb 05/03/2013 11:21am BP Systolic 124 mmHg BP Diastolic 68 mmHg Heart Rate 72 /min Height 71 inches 5'11" Weight 266.00 lb 01/11/2013 10:05am BP Systolic 132 mmHg BP Diastolic 80 mmHg Heart Rate 80 /min Height 71 inches 5'11" Weight 262.00 lb 10/21/2012 2:20pm BP Systolic 124 mmHg BP Diastolic 78 mmHg Body Temperature 98.8 F Heart Rate 96 /min Height 71 inches 5'11" Weight 253.00 lb 08/31/2012 10:28am BP Systolic 138 mmHg BP Diastolic 88 mmHg Heart Rate 80 /min Height 71 inches 5'11" Weight 251.00 lb 08/11/2012 10:40am Height 71 inches 5'11" Weight 240.00 lb 08/03/2012 11:05am BP Systolic 124 mmHg BP Diastolic 80 mmHg Height 71 inches 5'11" Weight 244.00 lb 07/27/2012 9:42am BP Systolic 124 mmHg BP Diastolic 82 mmHg Height 71 inches 5'11" Weight 245.00 lb 07/03/2012 2:17pm BP Systolic 118 mmHg BP Diastolic 72 mmHg Body Temperature 98.5 F Height 71 inches 5'11" Weight 242.00 lb 06/24/2012 10:23am BP Systolic 136 mmHg BP Diastolic 88 mmHg Body Temperature 97.3 F Height 71 inches 5'11" Weight 238.00 lb 12/23/2011 10:06am BP Systolic 122 mmHg BP Diastolic 78 mmHg Body Temperature 97.8 F Height 71 inches 5'11" Weight 238.00 lb 11/25/2011 11:34am BP Systolic 138 mmHg BP Diastolic 84 mmHg Body Temperature 98.2 F Height 71 inches 5'11" Weight 247.00 lb 11/18/2011 1:57pm BP Systolic 114 mmHg BP Diastolic 76 mmHg Body Temperature 98.6 F Height 71 inches 5'11" Weight 239.00 lb Results Test Date Facility Test Result H/L Range Note Urine Culture 04/28/2019 [facility] Urine Culture [facility] [address] [place] [address] [phone] Quantity 10,000 - 50,000 <SEE NOTE> 2 Ua Routine 04/28/2019 [facility] Ua Specific [place] 1.025 1.010-1.030 Ua PH 6.0 Low 6.5-7.5 Ua Color Yellow Yellow Ua Appera cloudy Ua WBC 1+ Ua Protein 0.15 High Negative Ua Glucose neg Negative Ua Ketones neg Negative Ua Bilirubin neg Negative Ua Urobilinogen 3.5 High 0.2 - 1.0 E.U./dL Ua Nitrite neg Negative Glycohemoglobin 02/16/[address] [facility] [address] Glycohemoglobin 5.8 % Normal 4.2-6.3 3, 4 A1c [address] [facility] (A1c) [place], [place] [id number] [phone] eAG 120 mg/dL Urine Dipstick 02/16/2019 [facility] Ua Leuko - Negative Ua Nitrite - Negative Ua Urobilinogen .2 0.2 - 1.0 E.U./dL Ua Protein - Negative Ua PH 6 Low 6.5-7.5 Ua Blood - Negative Ua Specific [place] 1.015 1.010-1.030 Ua Ketones - Negative Ua Bilirubin - Negative Ua Glucose - Negative Glycohemoglobin 10/20/2018 [facility] [address] Glycohemoglobin 7.1 % High 4.2-6.[address] (A1c) [place] [address] [phone] eAG 157 mg/dL Urine Dipstick 10/20/2018 [facility] Ua Leuko - Negative Ua Nitrite - Negative Ua Urobilinogen .2 0.2 - 1.0 E.U./dL Ua Protein - Negative Ua PH 6 Low 6.5-7.5 Ua Blood - Negative Ua Specific [place] 1.005 Low 1.010-1.030 Ua Ketones - Negative Ua Bilirubin - Negative Ua Glucose - Negative Influenza A/B 08/24/2018 [facility] Influenza A Negative (Negative) [address] [place] [address] [phone] Influenza B Antigen Negative (Negative) 7 TSH SerPl-aCnc 06/16/2018 N2N/CCD Import TSH SerPl-aCnc 5.31 High 0.30- 4.20 Serum or plasma 06/16/2018 N2N/CCD Import Serum or plasma 1.13 0.76- 1.46 free thyroxine free thyroxine (FT4) measurement ( (FT4) measurement (mass/volume) Serum or plasma 04/14/2018 N2N/CCD Import Serum or plasma 93 45-117 alkaline alkaline phosphatase phosphatase measurement ( measurement (enzymatic activity/volume) Serum or plasma 04/14/2018 N2N/CCD Import Serum or plasma 28 15-37 aspartate aspartate aminotransferase aminotransferase measure measurement (enzymatic activity/volume) Serum or plasma 04/14/2018 N2N/CCD Import Serum or plasma 8.9 8.5-10.1 calcium measurement calcium measurement (mass/volume) (mass/volume) Serum or plasma 04/14/2018 N2N/CCD Import Serum or plasma 32 Low >40 cholesterol in HDL cholesterol in HDL measurement (ma measurement (mass/volume) Serum or plasma 04/14/2018 N2N/CCD Import Serum or plasma 57 < 100 cholesterol in LDL cholesterol in LDL measurement by measurement by calculation (mass/volume) Serum or plasma 04/14/2018 N2N/CCD Import Serum or plasma 134 <200 cholesterol cholesterol measurement measurement (mass/volu (mass/volume) Serum or plasma 04/14/2018 N2N/CCD Import Serum or plasma 1.3 0.6-1.3 creatinine creatinine measurement measurement (mass/volum (mass/volume) Serum or plasma 04/14/2018 N2N/CCD Import Serum or plasma 58 Low 74-106 glucose measurement glucose measurement (mass/volume) (mass/volume) Serum or plasma 04/14/2018 N2N/CCD Import Serum or plasma 7.6 6.4-8.2 protein measurement protein measurement (mass/volume) (mass/volume) Serum or plasma 04/14/2018 N2N/CCD Import Serum or plasma 0.3 0.2-1.0 total bilirubin total bilirubin measurement (mass/ measurement (mass/volume) Serum or plasma 04/14/2018 N2N/CCD Import Serum or plasma 226 High <150 triglyceride triglyceride measurement measurement (mass/vol (mass/volume) Serum or plasma 04/14/2018 N2N/CCD Import Serum or plasma 18 7-18 urea nitrogen urea nitrogen measurement measurement (mass/vo (mass/volume) Serum or plasma 04/14/2018 N2N/CCD Import Serum or plasma 13.8 urea urea nitrogen/creatinine nitrogen/creatinine mass rati mass ratio Serum sodium 04/14/2018 N2N/CCD Import Serum sodium 140 136-145 measurement measurement TSH Reflex FT4 04/14/2018 [facility] Thyroid Stim 4.16 Normal 0.30-4.20 8 And/Or FT3 [address] Hormone uIU/[place] [address] [phone] Reflex add FT3? Y Reflex add FT4? Y Comprehensive Metabolic 04/14/2018 [facility] Glucose 58 mg/dL Low 74-[address] [place] [address] [phone] BUN 18 mg/dL Normal 7-18 Creatinine 1.3 mg/dL Normal 0.6-1.3 Glom Filtration Rate, Estimate 49 mL/min >60 If 59 mL/min >60 9 BUN/Creat 13.8 ratio Sodium 140 mmol/L Normal 136-145 Potassium 3.7 mmol/L Normal 3.5-5.1 Chloride 104 mmol/L Normal 98-107 Carbon Dioxide 25 mmol/L Normal 21-32 Anion Gap 11 mEq/L Normal 8-16 Calcium 8.9 mg/dL Normal 8.5-10.1 Total Protein 7.6 g/dL Normal 6.4-8.2 Albumin 3.7 g/dL Normal 3.4-5.0 Globulin 3.9 g/dL Normal 1.9-4.3 Alb/Glob 0.9 ratio Bilirubin,Total 0.3 mg/dL Normal 0.2-1.0 Sgot/Ast 28 U/L Normal 15-37 SGPT/Alt 35 U/L Normal 12-78 Alkaline Phosphatase 93 U/L Normal 45-117 Reflex add FT3? Y Reflex add FT4? Y LDL Cholesterol Profile 04/14/2018 [facility] Cholesterol 134 mg/dL <[address] [place], [place] [id number] [phone] Triglycerides 226 mg/dL High <150 11 HDL Cholesterol 32 mg/dL Low >40 12 LDL-Cholesterol 57 mg/dL < 100 13 Reflex add FT3? Y Reflex add FT4? Y Glycohemoglobin 04/14/2018 [facility] Glycohemoglobin 6.0 % Normal 4.2-6.3 [address] (A1c) [place], [place] [id number] [phone] eAG 126 mg/dL Alt SerPl-cCnc 04/14/2018 N2N/CCD Import Alt SerPl-cCnc 35 12-78 Albumin/Glob SerPl 04/14/2018 N2N/CCD Import Albumin/Glob SerPl 0.9 Anion Gap 04/14/2018 N2N/CCD Import Anion Gap 11 8-16 SerPl-sCnc SerPl-sCnc Blood estimated 04/14/2018 N2N/CCD Import Blood estimated 126 average glucose average glucose determination by e determination by estimation from glycated hemoglobin (mass/volume) Chloride SerPl-sCnc 04/14/2018 N2N/CCD Import Chloride 104 98-107 SerPl-sCnc GFR/Bsa pred.black 04/14/2018 N2N/CCD Import GFR/Bsa pred.black 59 >60 SerPl MDRD-ArVRat SerPl MDRD-ArVRat GFR/Bsa pred.non 04/14/2018 N2N/CCD Import GFR/Bsa pred.non 49 >60 black SerPl black SerPl MDRD-ArVRat MDRD-ArVRat Globulin Ser 04/14/2018 N2N/CCD Import Globulin Ser 3.9 1.9-4.3 Calc-mCnc Calc-mCnc Hgb A1c MFr Bld 04/14/2018 N2N/CCD Import Hgb A1c MFr Bld 6.0 4.2-6.3 Potassium 04/14/2018 N2N/CCD Import Potassium 3.7 3.5-5.1 SerPl-sCnc SerPl-sCnc Serum carbon 04/14/2018 N2N/CCD Import Serum carbon 25 21-32 dioxide measurement dioxide measurement Serum or plasma 04/14/2018 N2N/CCD Import Serum or plasma 3.7 3.4-5.0 albumin measurement albumin (mass/volume) measurement (mass/volume) Glycohemoglobin A1c 01/13/2018 [facility] Glycohemoglobin 5.9 % Normal 4.2-6.3 15, [address] (A1c) 16 [place], [place] [id number] [phone] eAG 123 mg/dL Basic Metabolic Panel 01/13/2018 [facility] Glucose 122 mg/dL High 74-[address] [place], [place] [id number] [phone] BUN 17 mg/dL Normal 7-18 Creatinine 1.2 mg/dL Normal 0.6-1.3 Glom Filtration Rate, Estimate 54 mL/min >60 If >60 mL/min >60 17 BUN/Creat 14.1 ratio Sodium 141 mmol/L Normal 136-145 Potassium 3.8 mmol/L Normal 3.5-5.1 Chloride 104 mmol/L Normal 98-107 Carbon Dioxide 31 mmol/L Normal 21-32 Anion Gap 6 mEq/L Low 8-16 Calcium 9.7 mg/dL Normal 8.5-10.1 Comprehensive 10/14/2017 [facility] Glucose 93 mg/dL Normal 74-106 18 Metabolic Panel [address] [place] [address] [phone] BUN 15 mg/dL Normal 7-18 Creatinine 1.0 mg/dL Normal 0.6-1.3 Glom Filtration Rate, Estimate >60 mL/min >60 If >60 mL/min >60 19 BUN/Creat 15.0 ratio Sodium 140 mmol/L Normal 136-145 Potassium 3.8 mmol/L Normal 3.5-5.1 Chloride 104 mmol/L Normal 98-107 Carbon Dioxide 28 mmol/L Normal 21-32 Anion Gap 8 mEq/L Normal 8-16 Calcium 9.0 mg/dL Normal 8.5-10.1 Total Protein 7.5 g/dL Normal 6.4-8.2 Albumin 3.5 g/dL Normal 3.4-5.0 Globulin 4.0 g/dL Normal 1.9-4.3 Alb/Glob 0.9 ratio Bilirubin,Total 0.2 mg/dL Normal 0.2-1.0 Sgot/Ast 23 U/L Normal 15-37 SGPT/Alt 40 U/L Normal 12-78 Alkaline Phosphatase 109 U/L Normal 45-117 Laboratory test 10/14/2017 [facility] Thyroid 0.88 Normal 0.30-4.[address] Stim uIU/[place] [address] Hormone [phone] Microalb/Creat 10/14/2017 [facility] Microalbumi 117.0 mg/L < 20.0 Ratio,Random [address] n,[place] [address] [phone] Microalbumin/Creatinine Ratio 151.9 ug/mgCrt < 30.0 Urine Creatinine Conc 77 mg/dL Glycohemoglobin 10/14/2017 [facility] Glycohemoglobin 6.1 % Normal 4.2-6.3 [address] (A1c) [place] [address] [phone] eAG 128 mg/dL LDL Cholesterol Profile 10/14/2017 [facility] Cholesterol 146 mg/dL <[address] [place] [address] [phone] Triglycerides 237 mg/dL High <150 22 HDL Cholesterol 38 mg/dL Low >40 23 LDL-Cholesterol 61 mg/dL < 100 24 Glycohemoglobin 07/15/2017 [facility] Glycohemoglobin 5.8 % Normal 4.2-6.3 25, A1c [address] (A1c) 26 [place], [place] [address] [phone] eAG 120 mg/dL Basic Metabolic Panel 07/15/2017 [facility] Glucose 115 mg/dL High 74-106 [address] [place], [place] [address] [phone] BUN 14 mg/dL Normal 7-18 Creatinine 1.0 mg/dL Normal 0.6-1.3 Glom Filtration Rate, Estimate >60 mL/min >60 If >60 mL/min >60 27 BUN/Creat 14.0 ratio Sodium 138 mmol/L Normal 136-145 Potassium 3.7 mmol/L Normal 3.5-5.1 Chloride 104 mmol/L Normal 98-107 Carbon Dioxide 26 mmol/L Normal 21-32 Anion Gap 8 mEq/L Normal 8-16 Calcium 9.4 mg/dL Normal 8.5-10.1 Laboratory 07/15/2017 [facility] Magnesium 1.4 mg/dL Low 1.8-2.4 test finding [address] [place], [place] [address] [phone] H 05/29/[address] [facility] [address] Helicobacter <0.9 U/mL 0.0-0.8 28, Pylori,Igm,Igg [address] [place] [address] Pylori, Igg 29 ,[place] [address] Antibodies [phone] Helicobacter Pylori, Iga Abs < 9.0 units 0.0-8.9 30 Helicobacter Pylori, Igm Abs < 9.0 units 0.0-8.9 31 Comprehensive 05/15/[address] Glucose TNP mg/dL 74-106 32, 33 Metabolic Panel [address] [place], [place] [address] [phone] BUN 17 mg/dL Normal 7-18 Creatinine 1.4 mg/dL High 0.6-1.3 Glom Filtration Rate, Estimate 45 mL/min >60 If 55 mL/min >60 34 BUN/Creat 12.1 ratio Sodium 139 mmol/L Normal 136-145 Potassium 3.5 mmol/L Normal 3.5-5.1 Chloride 102 mmol/L Normal 98-107 Carbon Dioxide 30 mmol/L Normal 21-32 Anion Gap 7 mEq/L Low 8-16 Calcium 10.7 mg/dL High 8.5-10.1 Total Protein 8.0 g/dL Normal 6.4-8.2 Albumin 3.7 g/dL Normal 3.4-5.0 Globulin 4.3 g/dL Normal 1.9-4.3 Alb/Glob 0.9 ratio Bilirubin,Total 0.4 mg/dL Normal 0.2-1.0 Sgot/Ast 36 U/L Normal 15-37 SGPT/Alt 53 U/L Normal 12-78 Alkaline Phosphatase 117 U/L Normal 45-117 Laboratory test finding 05/15/2017 [facility] [address] Amylase 55 U/L Normal 25-[address] [place], [place] [id number] [phone] Lipase 412 U/L High 73-393 Glycohemoglobin 04/15/2017 [facility] Glycohemoglobin 6.1 % Normal 4.2-6.3 35, A1c [address] (A1c) 36 [place] [address] [phone] eAG 128 mg/dL Chlamydia/GC Ria 01/24/2017 [facility] [address] Chlamydia Negative Negative [address] Trachomatis, Ria [place], [place] [address] [phone] Neisseria Gonorrhoeae, Ria Negative Negative Please note: (SEE NOTE) 38 Specimen Type: Genital HPV High 01/24/2017 [facility] HPV High Results on [address] [place] [address] [phone] CBS 12/04/2016 [facility] White Blood 5.4 K/uL Normal 3.1-10. W/Automated [address] Count 7 [place] [address] [phone] Red Blood Count 4.32 M/uL Normal 3.90-5.40 Hemoglobin 13.1 gm/dL Normal 11.6-15.8 Hematocrit 38.5 % Normal 36.0-46.1 Mean Cell Volume 89.1 fl Normal 80.9-99.0 Mean Corpuscular HGB 30.3 pg Normal 25.9-32.7 Mean Corpuscular HGB Conc 34.0 g/dL Normal 30.8-34.3 Platelet Count 310 K/uL Normal 150-400 Red Cell Distri Width SD 41.9 fl Normal 3-47 Red Cell Distri Width %CV 13.2 % Normal 11.7-14.4 Mean Platelet Volume 9.6 fL Normal 8.9-12.4 Neut% 60.4 % Normal 40.4-72.8 Lymph % 19.2 % Low 20.0-42.0 [place] % 15.9 % High 4.3-13.2 Eo% 3.9 % Normal 0.0-6.6 Bas% 0.6 % Normal 0.0-1.1 Neut# 3.27 K/uL Normal 1.8-7.0 Lymph # 1.04 K/uL Normal 1.0-4.0 [place] # 0.86 K/uL Normal 0.3-0.9 Eos # 0.21 K/uL Normal 0.0-0.5 Baso # 0.03 K/uL Normal 0.0-0.1 Laboratory test 12/04/2016 [facility] Thyroid 4.05 Normal 0.30-4.[address] Stim uIU/[place] [address] Hormone [phone] Microalb/Creat 10/15/2016 [facility] Microalbumi 144.0 mg/L Normal < 20.0 40 Ratio,Random [address] n,Urine [place], [place] [id number] [phone] Microalbumin/Creatinine Ratio 423.5 ug/mgCrt Normal < 30.0 Urine Creatinine Conc 34 mg/dL Normal LDL Cholesterol 10/15/2016 [facility] Cholesterol 169 mg/dL Normal <200 [address] [place], [place] [id number] [phone] Triglycerides 285 mg/dL High <150 42 HDL Cholesterol 38 mg/dL Low >40 43 LDL-Cholesterol 74 mg/dL Normal < 100 44 Reflex add FT3? Y Reflex add FT4? Y Glycohemoglobin 10/15/2016 [facility] Glycohemoglobin 7.8 % High 4.2-6.3 [address] (A1c) [place], [place] [id number] [phone] eAG 177 mg/dL Normal Comprehensive Metabolic 10/15/2016 [facility] Glucose 221 mg/dL High 74-[address] [place] [address] [phone] BUN 15 mg/dL Normal 7-18 Creatinine 1.1 mg/dL Normal 0.6-1.3 Glom Filtration Rate, Estimate 60 mL/min Normal >60 If >60 mL/min Normal >60 46 BUN/Creat 13.6 ratio Normal Sodium 135 mmol/L Low 136-145 Potassium 3.9 mmol/L Normal 3.5-5.1 Chloride 98 mmol/L Normal 98-107 Carbon Dioxide 29 mmol/L Normal 21-32 Anion Gap 8 mEq/L Normal 8-16 Calcium 8.9 mg/dL Normal 8.5-10.1 Total Protein 7.6 g/dL Normal 6.4-8.2 Albumin 3.4 g/dL Normal 3.4-5.0 Globulin 4.2 g/dL Normal 1.9-4.3 Alb/Glob 0.8 ratio Normal Bilirubin,Total 0.4 mg/dL Normal 0.2-1.0 Sgot/Ast 75 U/L High 15-37 SGPT/Alt 103 U/L High 12-78 Alkaline Phosphatase 125 U/L High 45-117 Reflex add FT3? Y Reflex add FT4? Y TSH Reflex 10/15/2016 [facility] Thyroid Stim 2.95 uIU/mL Normal 0.30-4.20 FT4 And/Or [address] Hormone FT3 [place] [address] [phone] Reflex add FT3? Y Reflex add FT4? Y Urine Culture 04/01/2016 [facility] Urine Culture See Note 47 [address] [place] [address] [phone] Basic Metabolic 02/27/2016 [facility] Glucose 86 mg/dL 74-106 48 Panel [address] [place] [address] [phone] BUN 19 mg/dL High 7-18 Creatinine 1.0 mg/dL 0.6-1.3 Glom Filtration Rate, Estimate >60 mL/min >60 If >60 mL/min >60 49 BUN/Creat 19.0 ratio Sodium 138 mmol/L 136-145 Potassium 3.8 mmol/L 3.5-5.1 Chloride 102 mmol/L 98-107 Carbon Dioxide 28 mmol/L 21-32 Anion Gap 8 mEq/L 8-16 Calcium 9.2 mg/dL 8.5-10.1 Glycohemoglobin 02/27/2016 [facility] Glycohemoglobin 6.7 % High 4.2-6.3 [address] (A1c) [place] [address] [phone] eAG 146 mg/dL Laboratory test 02/27/2016 [facility] D-Dimer, 0.46 ug/mL [address] Quantitative [place], [place] [address] [phone] Basic Metabolic 10/24/2015 [facility] Glucose 135 mg/dL High 74-[address] [place] [address] [phone] BUN 22 mg/dL High 7-18 Creatinine 1.3 mg/dL 0.6-1.3 Glom Filtration Rate, Estimate 50 mL/min >60 If 60 mL/min >60 52 BUN/Creat 16.9 ratio Sodium 138 mmol/L 136-145 Potassium 4.2 mmol/L 3.5-5.1 Chloride 102 mmol/L 98-107 Carbon Dioxide 29 mmol/L 21-32 Anion Gap 7 mEq/L Low 8-16 Calcium 9.1 mg/dL 8.5-10.1 Glycohemoglobin 10/24/2015 [facility] Glycohemoglobin 7.2 % High 4.2-6.3 [address] (A1c) [place], [place] [address] [phone] eAG 160 mg/dL LDL Cholesterol 10/24/2015 [facility] Cholesterol 153 mg/dL 150-[address] [place], [place] [address] [phone] Triglycerides 317 mg/dL High 50-150 55 HDL Cholesterol 31 mg/dL Low 60-150 56 LDL-Cholesterol 59 mg/dL Low 75-100 57 Laboratory test 10/24/2015 [facility] Direct LDL 81 mg/dL 0-99 [address] Cholesterol [place], [place] [address] [phone] Thyroid Stim Hormone 2.36 uIU/mL 0.36-3.74 Laboratory test 08/01/2015 [facility] (DO Not Use) Cytology Pap See Note Normal 59 finding Laboratory test 06/20/2015 [facility] Microalbumin,Ra 24.4 mg/L < 20.[address] [place] [address] [phone] Basic Metabolic 06/20/2015 [facility] Glucose 112 mg/dL High 74-[address] [place] [address] [phone] BUN 16 mg/dL 7-18 Creatinine 1.1 mg/dL 0.6-1.3 Glom Filtration Rate, Estimate 60 mL/min >60 If >60 mL/min >60 60 BUN/Creat 14.5 ratio Sodium 139 mmol/L 136-145 Potassium 4.0 mmol/L 3.5-5.1 Chloride 104 mmol/L 98-107 Carbon Dioxide 28 mmol/L 21-32 Anion Gap 7 mEq/L Low 8-16 Calcium 8.7 mg/dL 8.5-10.1 Glycohemoglobin 06/20/2015 [facility] Glycohemoglobin 7.0 % High 4.2-6.3 [address] (A1c) [place], [place] [id number] [phone] eAG 154 mg/dL Laboratory test 06/20/2015 [facility] Thyroid Stim 3.21 uIU/mL 0.36-3.74 finding [address] [facility] [place] [address] [phone] Laboratory test 03/02/2015 [facility] Urine SEE RESULT 62 finding [phone] Culture BELOW Basic Metabolic 02/14/2015 [facility] Glucose 92 mg/dL 74-106 Panel [address] [place], [place] [address] [phone] BUN 19 mg/dL High 7-18 Creatinine 1.0 mg/dL 0.6-1.3 Glom Filtration Rate, Estimate >60 mL/min >60 If >60 mL/min >60 63 BUN/Creat 19.0 ratio Sodium 140 mmol/L 136-145 Potassium 3.8 mmol/L 3.5-5.1 Chloride 105 mmol/L 98-107 Carbon Dioxide 29 mmol/L 21-32 Anion Gap 6 mEq/L Low 8-16 Calcium 8.5 mg/dL 8.5-10.1 Glycohemoglobin 02/14/2015 [facility] Glycohemoglobin 6.7 % High 4.2-6.3 [address] (A1c) [place], [place] [address] [phone] eAG 146 mg/dL LDL Cholesterol 02/14/2015 [facility] Cholesterol 146 mg/dL Low 150-200 [address] [place] [address] [phone] Triglycerides 315 mg/dL High 50-150 66 HDL Cholesterol 31 mg/dL Low 60-150 67 LDL-Cholesterol 52 mg/dL Low 75-100 68 Liver Function Tests 02/14/2015 [facility] Total Protein 7.3 g/dL 6.4-8.2 [address] [place] [address] [phone] Albumin 3.5 g/dL 3.4-5.0 Globulin 3.8 g/dL 1.9-4.3 Alb/Glob 0.9 ratio Bilirubin,Total 0.4 mg/dL 0.2-1.0 Bilirubin,Direct < 0.1 mg/dL 0.0-0.2 Bilirubin,Indirect 0.3 mg/dL 0.0-0.9 Sgot/Ast 27 U/L 15-37 SGPT/Alt 46 U/L 12-78 Alkaline Phosphatase 91 U/L 45-117 Laboratory test 02/14/2015 [facility] Thyroid Stim 3.65 uIU/mL 0.36-3.74 finding [address] [place] [address] [phone] Basic Metabolic 10/18/2014 N2N/CCD Import Anion Gap 7 mEq/L Low 8-16 Panel BUN 17 mg/dL 7-18 BUN/Creat 17.0 ratio Calcium 9.9 mg/dL 8.5-10.1 Carbon Dioxide 32 mmol/L 21-32 Chloride 105 mmol/L 98-107 Creatinine 1.0 mg/dL 0.6-1.3 Glom Filtration Rate, Estimate >60 mL/min >60 Glucose 94 mg/dL 74-106 If >60 mL/min >60 69 Potassium 4.0 mmol/L 3.5-5.1 Sodium 140 mmol/L 136-145 Glycohemoglobin A1c 10/18/2014 N2N/CCD Import Glycohemoglobin 7.4 % High 4.2-6.3 70 (A1c) eAG 166 mg/dL Laboratory test finding 06/14/2014 N2N/CCD Import Prolactin 13.1 ng/mL 3.24-29.12 Thyroid Stim Hormone 4.10 uIU/mL 0.49-4.67 Basic Metabolic Panel 06/14/2014 N2N/CCD Import Anion Gap 12 mEq/L 8-16 BUN 12 mg/dL 5-23 BUN/Creat 10.9 ratio Calcium 8.8 mg/dL 8.5-10.1 Carbon Dioxide 27 mEq/L 18-29 Chloride 104 mmol/L 98-107 Creatinine 1.1 mg/dL 0.5-1.4 Glom Filtration Rate, Estimate >60 mL/min >60 Glucose 85 mg/dL 76-115 If >60 mL/min >60 71 Potassium 3.8 mmol/L 3.5-5.1 Sodium 139 mmol/L 136-145 Glycohemoglobin A1c 06/14/2014 N2N/[facility]D Import Glycohemoglobin 8.0 % High 4.8-6.0 72 (A1c) eAG 183 mg/dL LDL Cholesterol Profile 06/14/2014 N2N/[employer] Import Cholesterol 143 mg/dL 120-200 HDL Cholesterol 33 mg/dL 29-83 LDL-Cholesterol 52 mg/dL Low 62-185 Triglycerides 292 mg/dL High 16-231 Liver Function Tests 06/14/2014 N2N/[employer] Import Alb/Glob 1.0 ratio Albumin 3.7 g/dL 3.5-5.0 Alkaline Phosphatase 85 U/L 50-136 Bilirubin,Direct < 0.1 mg/dL Low 0.1-0.4 Bilirubin,Indirect 0.3 mg/dL 0.0-0.9 Bilirubin,Total 0.4 mg/dL 0.2-1.2 Globulin 3.7 g/dL 1.9-4.3 SGPT/Alt 38 U/L 30-65 Sgot/Ast 24 U/L 16-40 Total Protein 7.4 g/dL 6.3-8.0 Testosterone,Free/Weakly 06/14/2014 N2N/[employer] Import Testosterone,%Free/ Weakly 14.2 3.0-18.0 Bound BND % Testosterone,Free+Weakly Bound 7.1 ng/dL 0.0-9.5 73 Testosterone,Serum 50 ng/dL High 8-48 Laboratory test 06/14/2014 N2N/[facility] Import Microalbumin,Random 127.0 High 0.0-18.5 finding Urine mg/L Basic Metabolic 02/08/2014 N2N/[facility]D Import Anion Gap 11 mEq/L 8-16 Panel BUN 16 mg/dL 5-23 BUN/Creat 14.5 ratio Calcium 9.9 mg/dL 8.5-10.1 Carbon Dioxide 28 mEq/L 18-29 Chloride 105 mmol/L 98-107 Creatinine 1.1 mg/dL 0.5-1.4 Glom Filtration Rate, Estimate >60 mL/min >60 Glucose 103 mg/dL 76-115 If >60 mL/min >60 74 Potassium 3.9 mmol/L 3.5-5.1 Sodium 140 mmol/L 136-145 Glycohemoglobin A1c 02/08/2014 N2N/[facility] Import Glycohemoglobin 7.2 % High 4.8-6.0 75 (A1c) eAG 160 mg/dL Laboratory test 11/04/2013 N2N/[facility] Import Urine HCG QN Negative finding Mol/Vol Laboratory test 11/02/2013 N2N/[facility] Import Hemoglobin A1c 7.3 % High Less than 76 finding 6.0 Basic Metabolic 11/02/2013 N2N/[facility]D Import Anion Gap 7.0 mmol/L 2-11 Panel BUN/Creatinine Ratio 20.0 8-20 Blood Urea Nitrogen 16 mg/dL 6-24 Calcium 10.3 mg/dL High 8.1-9.9 Chloride 98 mmol/L Low 101-111 Co2 Carbon Dioxide 31.0 mmol/L 22-32 Creatinine 0.80 mg/dL 0.50-1.40 Egfr 106.9 >60 77 Egfr Non- 83.1 >60 Glucose 172 mg/dL High 70-100 Potassium 3.8 mmol/L 3.5-5.0 Sodium 136 mmol/L 133-145 Laboratory test 07/22/2013 N2N/[facility]D Import Hemoglobin A1c 8.5 % High Less than 78 finding 6.0 TSH (Thyroid Stimulating Horm) 3.77 miu/mL 0.34-5.60 CBC Auto Diff 07/22/2013 N2N/[facility] Import Abs Basophils 0 10^3/uL 0-0.2 Abs Eosinophils 0.2 10^3/uL 0-0.6 Abs Lymphocytes 1.2 10^3/uL 1.0-4.8 Abs Monocytes 0.6 10^3/uL 0-0.8 Abs Neutrophils 4.1 10^3/uL 1.5-7.7 Abs Nucleated RBC 0.01 10^3/uL Basophil % 0.8 % 0-2 Eosinophil % 2.5 % 0-6 Granulocyte % 66.9 % 38-83 Hematocrit 40 % 35-47 Hemoglobin 13.7 g/dL 12.0-16.0 Lymphocyte % 19.2 % Low 25-47 Mean Corpuscular HGB Conc 34 g/dL 31-36 Mean Corpuscular Hemoglobin 31 pg 27-31 Mean Corpuscular Volume 89 fL 80-97 Mean Platelet Volume 8 um3 7.4-10.4 Monocyte % 10.6 % High 1-9 Nucleated Red Blood Cells % 0.1 Platelet Count 290 10^3/uL 150-450 Red Blood Count 4.49 10^6/uL 4.0-5.4 Red Cell Distribution Width 13 % 10.5-15 White Blood Count 6.1 10^3/uL 4.8-10.8 Comp Metabolic Panel 07/22/2013 N2N/[facility]D Import Albumin 3.5 g/dL Low 3.6- 5.4 Albumin/Globulin Ratio 1.4 1-3 Alkaline Phosphatase 73 U/L 30-110 Alt 38 U/L 14-54 Anion Gap 6.0 mmol/L 2-11 Ast 29 U/L 12-42 BUN/Creatinine Ratio 13.3 8-20 Blood Urea Nitrogen 12 mg/dL 6-24 Calcium 9.3 mg/dL 8.1-9.9 Chloride 102 mmol/L 101-111 Co2 Carbon Dioxide 28.0 mmol/L 22-32 Creatinine 0.90 mg/dL 0.50-1.40 Egfr 93.3 >60 79 Egfr Non- 72.6 >60 Globulin 2.5 g/dL 2-4 Glucose 144 mg/dL High 70-100 Potassium 3.9 mmol/L 3.5-5.0 Sodium 136 mmol/L 133-145 Total Bilirubin 0.6 mg/dL 0.4-1.5 Total Protein 6.0 g/dL Low 6.2-8.1 Lipid Profile 07/22/2013 N2N/CCD Import Cholesterol 145 mg/dL Less than (Trig/Chol/HDL) 200 Cholesterol/HDL Ratio 4.7 Average High 1-4.44 HDL Cholesterol 31 mg/dL Low 40-60 80 LDL Cholesterol 44.0 Less Than 100 81 Triglycerides 350 mg/dL High 40-200 Urine Microalbumin 07/22/2013 N2N/CCD Import Ur Microalbumin 227.0 mg/L 82 Random (mg/L) Urine Creatinine 131.0 mg/dL Urine Microalbumin/Creatinine 173.3 High Less Than 31 Laboratory test 05/03/2013 N2N/CCD Import Hemoglobin A1c 8.1 % High Less than 83, 84 finding 6.0 Basic Metabolic 05/03/2013 N2N/CCD Import Anion Gap 6.0 2-11 Panel mmol/L BUN/Creatinine Ratio 13.3 8-20 Blood Urea Nitrogen 12 mg/dL 6-24 Calcium 9.5 mg/dL 8.1-9.9 Chloride 102 mmol/L 101-111 Co2 Carbon Dioxide 28.0 mmol/L 22-32 Creatinine 0.90 mg/dL 0.50-1.40 Egfr 93.3 >60 85 Egfr Non- 72.6 >60 Glucose 207 mg/dL High 70-100 Potassium 4.3 mmol/L 3.5-5.0 Sodium 136 mmol/L 133-145 Lipid Profile 05/03/2013 N2N/CCD Import Cholesterol 173 mg/dL Less than (Trig/Chol/HDL) 200 Cholesterol/HDL Ratio 4.9 Average High 1-4.44 HDL Cholesterol 35 mg/dL Low 40-60 86 LDL Cholesterol 76.0 Less Than 100 87 Triglycerides 310 mg/dL High 40-200 Liver Function Panel 05/03/2013 N2N/CCD Import Albumin 3.6 g/dL 3.6-5.4 Albumin/Globulin Ratio 1.2 1-3 Alkaline Phosphatase 67 U/L 30-110 Alt 36 U/L 14-54 Ast 28 U/L 12-42 Direct Bilirubin < 0.1 mg/dL Low 0.1-0.5 Globulin 2.9 g/dL 2-4 Indirect Bilirubin (See Note) mg/dL 0.3-1.0 88 Total Bilirubin 0.7 mg/dL 0.4-1.5 Total Protein 6.5 g/dL 6.2-8.1 Laboratory test 01/11/2013 N2N/CCD Import Hemoglobin A1c 8.6 % High Less than 89 finding 6.0 Basic Metabolic 01/11/2013 N2N/CCD Import Anion Gap 5.0 mmol/L 2-11 Panel BUN/Creatinine Ratio 20.0 8-20 Blood Urea Nitrogen 14 mg/dL 6-24 Calcium 9.4 mg/dL 8.1-9.9 Chloride 106 mmol/L 101-111 Co2 Carbon Dioxide 29.0 mmol/L 22-32 Creatinine 0.70 mg/dL 0.50-1.40 Egfr 125.5 >60 90 Egfr Non- 97.6 >60 Glucose 211 mg/dL High 70-100 Potassium 4.4 mmol/L 3.5-5.0 Sodium 140 mmol/L 133-145 Laboratory test 10/21/2012 N2N/CCD Import Hemoglobin A1c 8.0 % High Less than 91 finding 6.0 Basic Metabolic 10/21/2012 N2N/CCD Import Anion Gap 6.0 mmol/L 2-11 Panel BUN/Creatinine Ratio 15.0 8-20 Blood Urea Nitrogen 12 mg/dL 6-24 Calcium 9.6 mg/dL 8.1-9.9 Chloride 103 mmol/L 101-111 Co2 Carbon Dioxide 28.0 mmol/L 22-32 Creatinine 0.80 mg/dL 0.50-1.40 Egfr 107.6 >60 92 Egfr Non- 83.7 >60 Glucose 180 mg/dL High 70-100 Potassium 3.9 mmol/L 3.5-5.0 Sodium 137 mmol/L 133-145 Laboratory test 08/31/2012 N2N/CCD Import Hemoglobin A1c 8.4 % High Less than 93 finding 6.0 Basic Metabolic 08/31/2012 N2N/CCD Import Anion Gap 7.0 mmol/L 2-11 Panel BUN/Creatinine Ratio 18.3 8-20 Blood Urea Nitrogen 11 mg/dL 6-24 Calcium 9.4 mg/dL 8.1-9.9 Chloride 101 mmol/L 101-111 Co2 Carbon Dioxide 30.0 mmol/L 22-32 Creatinine 0.60 mg/dL 0.50-1.40 Egfr 150.0 >60 94 Egfr Non- 116.6 >60 Glucose 129 mg/dL High 70-100 Potassium 3.9 mmol/L 3.5-5.0 Sodium 138 mmol/L 133-145 Laboratory test 07/27/2012 N2N/CCD Import Cytology Pap See Note 95 finding Laboratory test 07/27/2012 N2N/CCD Import Anti Nuclear Negative Negative finding Antibody Screen Erythrocyte Sed Rate 16 MM/HR High 0-14 Hemoglobin A1c 10.2 % High Less than 6.0 96 Rheumatoid Factor <15 Iu/ml <15 97 TSH (Thyroid Stimulating Horm) 3.43 MIU/ML 0.34-5.60 Uric Acid 6.7 mg/dL 2.6-7.2 CBC Auto Diff 07/27/2012 N2N/CCD Import Abs Basophils 0 10^3/uL 0-0.2 Abs Eosinophils 0.1 10^3/uL 0-0.6 Abs Lymphocytes 1.1 10^3/uL 1.0-4.8 Abs Monocytes 0.6 10^3/uL 0-0.8 Abs Neutrophils 4.0 10^3/uL 1.5-7.7 Abs Nucleated RBC 0.01 10^3/uL Basophil % 0.4 % 0-2 Eosinophil % 2.0 % 0-6 Granulocyte % 67.9 % 38-83 Hematocrit 40 % 35-47 Hemoglobin 14.0 g/dL 12.0-16.0 Lymphocyte % 18.7 % Low 25-47 Mean Corpuscular HGB Conc 35 g/dL 31-36 Mean Corpuscular Hemoglobin 31 pg 27-31 Mean Corpuscular Volume 89 fL 80-97 Mean Platelet Volume 8 um3 7.4-10.4 Monocyte % 11.0 % High 1-9 Nucleated Red Blood Cells % 0.1 Platelet Count 261 10^3/uL 150-450 Red Blood Count 4.46 10^6/uL 4.0-5.4 Red Cell Distribution Width 13 % 10.5-15 White Blood Count 5.9 10^3/uL 4.8-10.8 Comp Metabolic Panel 07/27/2012 N2N/CCD Import Albumin 3.8 GM/DL 3.6- 5.4 Albumin/Globulin Ratio 1.5 1-3 Alkaline Phosphatase 63 U/L 30-110 Alt 22 U/L 14-54 Anion Gap 7.0 mmol/L 2-11 Ast 21 U/L 12-42 BUN/Creatinine Ratio 11.4 8-20 Blood Urea Nitrogen 8 mg/dL 6-24 Calcium 9.6 mg/dL 8.1-9.9 Chloride 101 mmol/L 101-111 Co2 Carbon Dioxide 29.0 mmol/L 22-32 Creatinine 0.70 mg/dL 0.50-1.40 Egfr 125.5 >60 98 Egfr Non- 97.6 >60 Globulin 2.6 GM/DL 2-4 Glucose 170 mg/dL High 70-100 Potassium 3.9 mmol/L 3.5-5.0 Sodium 137 mmol/L 133-145 Total Bilirubin 0.6 mg/dL 0.1-1.0 99 Total Protein 6.4 GM/DL 6.2-8.1 Lipid Profile 07/27/2012 N2N/CCD Import Cholesterol 146 mg/dL Less than 100 (Trig/Chol/HDL) 200 Cholesterol/HDL Ratio 3.7 AVERAGE 1-4.44 HDL Cholesterol 39 mg/dL Low 40-60 101 LDL Cholesterol 69.4 mg/dL Less Than 100 Triglycerides 188 mg/dL 40-200 Urine Microalbumin 07/27/2012 N2N/CCD Import Ur Microalbumin 92.0 mg/L 102 Random (Mg/L) Urine Creatinine 51.3 mg/dL Urine Microalbumin/Creatinine 179.3 UG/MG High Less Than 31 GC / Chlamydia 07/27/2012 N2N/CCD Import Chlamydia Negative GC Negative 103 Urine Culture 06/24/2012 N2N/CCD Import M 104 & Sensitivi <See Note> Laboratory 12/23/2011 N2N/CCD Import Hemoglobin A1c 9.5 % High Less 105 test finding Than 6.0 Comp Metabolic 12/23/2011 N2N/CCD Import Albumin 3.8 GM/DL 3.6-5.4 Panel Albumin/Globulin Ratio 1.2 1-3 Alkaline Phosphatase 80 U/L 30-110 Alt (SGPT) 25 U/L 14-54 Anion Gap 9.0 mmol/L 2-11 106 Ast (Sgot) 20 U/L 12-42 BUN 12 mg/dL 6-24 BUN/Creatinine Ratio 17.1 8-20 Bilirubin Total 0.8 mg/dL 0.4-1.5 107 Calcium 9.2 mg/dL 8.1-9.9 Chloride 101 mmol/L 101-111 Co2 (Carbon Dioxide) 27.0 mmol/L 22-32 Creatinine 0.7 mg/dL 0.50-1.40 Globulin 3.3 GM/DL 2-4 Glucose 134 mg/dL High 70-100 One Over Creatinine 1.42 Potassium 3.7 mmol/L 3.5-5.0 Sodium 137 mmol/L 135-145 Total Protein 7.1 GM/DL 6.2-8.1 eGFR 126.4 > 60 108 eGFR Non- 98.3 > 60 Laboratory test 11/18/2011 N2N/CCD Import Hemoglobin A1c 9.3 % High Less Than 109 finding 6.0 TSH 3.79 MIU/ML 0.34-5.60 Lipid Profile 11/18/2011 N2N/CCD Import Cholesterol 251 mg/dL High Less Than 110 (Trig/Chol/HDL) 200 Cholesterol/HDL Ratio 5.84 AVERAGE High 1-4.44 High Density Lipoprotein 43 mg/dL 40-60 111 Low Density Lipoprotein 128 mg/dL High Less Than 100 112 Triglyceride 400 mg/dL High 40-200 Comp Metabolic Panel 11/18/2011 N2N/CCD Import Albumin 4.1 GM/DL 3.6- 5.4 Albumin/Globulin Ratio 1.2 1-3 Alkaline Phosphatase 90 U/L 30-110 Alt (SGPT) 34 U/L 14-54 Anion Gap 10.0 mmol/L 2-11 113 Ast (Sgot) 29 U/L 12-42 BUN 13 mg/dL 6-24 BUN/Creatinine Ratio 16.3 8-20 Bilirubin Total 0.6 mg/dL 0.4-1.5 114 Calcium 9.8 mg/dL 8.1-9.9 Chloride 97 mmol/L Low 101-111 Co2 (Carbon Dioxide) 30.0 mmol/L 22-32 Creatinine 0.8 mg/dL 0.50-1.40 Globulin 3.5 GM/DL 2-4 Glucose 269 mg/dL High 70-100 One Over Creatinine 1.25 Potassium 4.0 mmol/L 3.5-5.0 Sodium 137 mmol/L 135-145 Total Protein 7.6 GM/DL 6.2-8.1 eGFR 108.3 > 60 115 eGFR Non- 84.2 > 60 CBC Auto Diff 11/18/2011 N2N/CCD Import Abs Basophils 0 0-0.2 116 Abs Eosinophils 0.1 0-0.6 Abs Lymphs 1.3 1.0-4.8 Abs Mononuclear 0.6 0-0.8 Absolute Neutrophil Count 4.6 1.5-7.7 Basophil % 0.3 % 0-2 Eosinophil % 1.5 % 0-6 Gran % 70.0 % 38-83 Hematocrit 41 % 35-47 Hemoglobin 15.2 g/dL 12.0-16.0 Lymph % 19.7 % Low 25-47 Mean Corpuscular HGB Cone 37 g/dL High 32-36 Mean Corpuscular Hemoglob 32 pg High 27-31 Mean Corpuscular Volume 86 um3 79-97 Mean Platelet Volume 7.5 um3 7.4-10.4 Mononuclear % 8.5 % 1-9 Platelet Count 321 CUMM 150-450 Red Cell Count 4.80 CUMM 4.2-5.4 Redcell Distribution WDTH 12 % 10.5-15 White Blood Count 6.6 CUMM 4.8-10.8 1 R39.15 2 10,000 - 50,000 CFU/mL 3 E11.39 4 Elevated levels of HbA1c suggest the need for more aggressive treatment of glycemia. The [place] [employer] recommends that a primary goal of therapy should be a HbA1c of <7% and that physicians should re-evaluate the treatment regimen in patients with HbA1c values consistently >8%. 5 Elevated levels of HbA1c suggest the need for more aggressive treatment of glycemia. The [place] [employer] recommends that a primary goal of therapy should be a HbA1c of <7% and that physicians should re-evaluate the treatment regimen in patients with HbA1c values consistently >8%. 6 J06.9 7 Please Note: A POSITIVE result for influenza A and/or B antigen does not rule out a co-infection with other pathogens or identify any specific influenza A virus subtype. A NEGATIVE result for influenza A and/or B antigen does not preclude influenza virus infection and should not be the sole basis for treatment or other management decisions, since the antigen present in the specimen may be below the detection limit of the test. A NEGATIVE result is PRESUMPTIVE and it is recommended these results be confirmed by virus culture or an FDA-cleared influenza A and B molecular assay. Method: 365 [employer] Chromatographic immunoassay 8 I10 E03.9 E78.5 E11.39 9 Note: Persistent reduction for 3 months or more in an eGFR <60 mL/min/1.73 m2 defines CKD. Patients with eGFR values >/=60 mL/min/1.73 m2 may also have CKD if evidence of persistent proteinuria is present. The original MDRD equation for estimated GFR is not valid for patients less than 18 years of age. Additional information may be found at [email or web address]. 10 Reference Guidelines*: Desirable: ........... < 200 mg/dL Borderline High: ..... 200-239 mg/dL High: ................ >= 240 mg/dL * The National Cholesterol Education Program (NCEP) 11 Reference Guidelines*: Normal: ............. < 150 mg/dL Borderline High: .... 150-199 mg/dL High: ............... 200-499 mg/dL Very High: .......... > 500 mg/dL * Source: National Cholesterol Education Program (NCEP) 12 Reference Guidelines*: Low HDL: ..... < 40 mg/dL Normal: ..... 40-60 mg/dL Desirable: ... > 60 mg/dL *The National Cholesterol Education Program(NCEP) 13 Reference Guidelines*: Optimal:........... <100 mg/dL Near Optimal....... 100-129 mg/dL Borderline High.... 130-159 mg/dL High............... 160-189 mg/dL Very High.......... >=190 mg/dL * Source: National Cholesterol Education Program (NCEP) 14 Elevated levels of HbA1c suggest the need for more aggressive treatment of glycemia. The [place] [employer] recommends that a primary goal of therapy should be a HbA1c of <7% and that physicians should re-evaluate the treatment regimen in patients with HbA1c values consistently >8%. 15 E11.39 I10 16 Elevated levels of HbA1c suggest the need for more aggressive treatment of glycemia. The [place] [employer] recommends that a primary goal of therapy should be a HbA1c of <7% and that physicians should re-evaluate the treatment regimen in patients with HbA1c values consistently >8%. 17 Note: Persistent reduction for 3 months or more in an eGFR <60 mL/min/1.73 m2 defines CKD. Patients with eGFR values >/=60 mL/min/1.73 m2 may also have CKD if evidence of persistent proteinuria is present. The original MDRD equation for estimated GFR is not valid for patients less than 18 years of age. Additional information may be found at [email or web address]. 18 E11.65 E78.5 I10 D50.0 19 Note: Persistent reduction for 3 months or more in an eGFR <60 mL/min/1.73 m2 defines CKD. Patients with eGFR values >/=60 mL/min/1.73 m2 may also have CKD if evidence of persistent proteinuria is present. The original MDRD equation for estimated GFR is not valid for patients less than 18 years of age. Additional information may be found at [email or web address]. 20 Elevated levels of HbA1c suggest the need for more aggressive treatment of glycemia. The [place] [employer] recommends that a primary goal of therapy should be a HbA1c of <7% and that physicians should re-evaluate the treatment regimen in patients with HbA1c values consistently >8%. 21 Reference Guidelines*: Desirable: ........... < 200 mg/dL Borderline High: ..... 200-239 mg/dL High: ................ >= 240 mg/dL * The National Cholesterol Education Program (NCEP) 22 Reference Guidelines*: Normal: ............. < 150 mg/dL Borderline High: .... 150-199 mg/dL High: ............... 200-499 mg/dL Very High: .......... > 500 mg/dL * Source: National Cholesterol Education Program (NCEP) 23 Reference Guidelines*: Low HDL: ..... < 40 mg/dL Normal: ..... 40-60 mg/dL Desirable: ... > 60 mg/dL *The National Cholesterol Education Program(NCEP) 24 Reference Guidelines*: Optimal:........... <100 mg/dL Near Optimal....... 100-129 mg/dL Borderline High.... 130-159 mg/dL High............... 160-189 mg/dL Very High.......... >=190 mg/dL * Source: National Cholesterol Education Program (NCEP) 25 E11.65 I10 K21.9 26 Elevated levels of HbA1c suggest the need for more aggressive treatment of glycemia. The [place] [employer] recommends that a primary goal of therapy should be a HbA1c of <7% and that physicians should re-evaluate the treatment regimen in patients with HbA1c values consistently >8%. 27 Note: Persistent reduction for 3 months or more in an eGFR <60 mL/min/1.73 m2 defines CKD. Patients with eGFR values >/=60 mL/min/1.73 m2 may also have CKD if evidence of persistent proteinuria is present. The original MDRD equation for estimated GFR is not valid for patients less than 18 years of age. Additional information may be found at [email or web address]. 28 REDRAW FOR MISSED LAB TEST 29 Negative <0.9 Indeterminate 0.9 - 1.0 Positive >1.0 30 Negative <9.0 Equivocal 9.0 - 11.0 Positive >11.0 31 Negative <9.0 Equivocal 9.0 - 11.0 Positive >11.0 This test was developed and its performance characteristics determined by [employer]. It has not been cleared or approved by the Food and Drug Administration. Performed at: - [facility] [address] [id number] Box Brander: Lenora Cheng MD, Phone: [phone] 32 R10.29 33 SPECIMEN COLLECTED AT 1630 RECEIVED AT [facility] AT 2013. UNABLE TO PERFORM GLUCOSE TEST. 34 Note: Persistent reduction for 3 months or more in an eGFR <60 mL/min/1.73 m2 defines CKD. Patients with eGFR values >/=60 mL/min/1.73 m2 may also have CKD if evidence of persistent proteinuria is present. The original MDRD equation for estimated GFR is not valid for patients less than 18 years of age. Additional information may be found at [email or web address]. 35 E11.65 36 Elevated levels of HbA1c suggest the need for more aggressive treatment of glycemia. The [place] [employer] recommends that a primary goal of therapy should be a HbA1c of <7% and that physicians should re-evaluate the treatment regimen in patients with HbA1c values consistently >8%. 37 N94.6 38 A negative result for either C. trachomatis and/or N. gonorrhoeae does not preclued an infection because results are dependent on adequate specimen collection, absence of inhibitors, and sufficient DNA to be detected. A negative result for either C. trachomatis and/or N. gonorrhoeae does not preclued an infection because results are dependent on adequate specimen collection, absence of inhibitors, and sufficient DNA to be detected. 39 Hard copy of report to be sent by mail Report may be viewed in Clinical Review, or in PCI under Medical Record Forms 40 E11.42 41 Reference Guidelines*: Desirable: ........... < 200 mg/dL Borderline High: ..... 200-239 mg/dL High: ................ >= 240 mg/dL * The National Cholesterol Education Program (NCEP) 42 Reference Guidelines*: Normal: ............. < 150 mg/dL Borderline High: .... 150-199 mg/dL High: ............... 200-499 mg/dL Very High: .......... > 500 mg/dL * Source: National Cholesterol Education Program (NCEP) 43 Reference Guidelines*: Low HDL: ..... < 40 mg/dL Normal: ..... 40-60 mg/dL Desirable: ... > 60 mg/dL *The National Cholesterol Education Program(NCEP) 44 Reference Guidelines*: Optimal:........... <100 mg/dL Near Optimal....... 100-129 mg/dL Borderline High.... 130-159 mg/dL High............... 160-189 mg/dL Very High.......... >=190 mg/dL * Source: National Cholesterol Education Program (NCEP) 45 Elevated levels of HbA1c suggest the need for more aggressive treatment of glycemia. The [place] [employer] recommends that a primary goal of therapy should be a HbA1c of <7% and that physicians should re-evaluate the treatment regimen in patients with HbA1c values consistently >8%. 46 Note: Persistent reduction for 3 months or more in an eGFR <60 mL/min/1.73 m2 defines CKD. Patients with eGFR values >/=60 mL/min/1.73 m2 may also have CKD if evidence of persistent proteinuria is present. The original MDRD equation for estimated GFR is not valid for patients less than 18 years of age. Additional information may be found at [email or web address]. 47 Organism 1 ! URETHRAL SHELLEY Quantity ! 10,000 - 50,000 CFU/mL 48 Patient informed of results 49 Note: Persistent reduction for 3 months or more in an eGFR <60 mL/min/1.73 m2 defines CKD. Patients with eGFR values >/=60 mL/min/1.73 m2 may also have CKD if evidence of persistent proteinuria is present. The original MDRD equation for estimated GFR is not valid for patients less than 18 years of age. Additional information may be found at www.[email or web address]. 50 Elevated levels of HbA1c suggest the need for more aggressive treatment of glycemia. The [place] [employer] recommends that a primary goal of therapy should be a HbA1c of <7% and that physicians should re-evaluate the treatment regimen in patients with HbA1c values consistently >8%. 51 <=0.49 ug/mL - Low likelihood of DIC, DVT or Pulmonary Embolism >0.49 ug/mL - Additional testing should be done to rule out DIC, DVT, or Pulmonary embolism as clinically indicated. ([facility] has established a 97.89% negative predictive value for thrombotic disease when a cutoff value of 0.5 ug/mL is used.) 52 Note: Persistent reduction for 3 months or more in an eGFR <60 mL/min/1.73 m2 defines CKD. Patients with eGFR values >/=60 mL/min/1.73 m2 may also have CKD if evidence of persistent proteinuria is present. The original MDRD equation for estimated GFR is not valid for patients less than 18 years of age. Additional information may be found at www.[email or web address]. 53 Elevated levels of HbA1c suggest the need for more aggressive treatment of glycemia. The [place] [employer] recommends that a primary goal of therapy should be a HbA1c of <7% and that physicians should re-evaluate the treatment regimen in patients with HbA1c values consistently >8%. 54 Reference Guidelines*: Desirable: ........... < 200 mg/dL Borderline High: ..... 200-239 mg/dL High: ................ >= 240 mg/dL * The National Cholesterol Education Program (NCEP) 55 Reference Guidelines*: Normal: ............. < 150 mg/dL Borderline High: .... 150-199 mg/dL High: ............... 200-499 mg/dL Very High: .......... > 500 mg/dL * Source: National Cholesterol Education Program (NCEP) 56 Reference Guidelines*: Low HDL: ..... < 40 mg/dL Normal: ..... 40-60 mg/dL Desirable: ... > 60 mg/dL *The National Cholesterol Education Program(NCEP) 57 Reference Guidelines*: Optimal:........... <100 mg/dL Near Optimal....... 100-129 mg/dL Borderline High.... 130-159 mg/dL High............... 160-189 mg/dL Very High.......... >=190 mg/dL * Source: National Cholesterol Education Program (NCEP) 58 Performed at: RN - [facility] [address] [id number] Box [place]ander: Lenora Cheng MD, Phone: [phone] 59 Interpretation: NEGATIVE FOR INTRAEPITHELIAL LESION OR MALIGNANCY. Specimen Adequacy: SATISFACTORY FOR EVALUATION. Additional Findings: ENDOCERVICAL/TRANSFORMATION ZONE PRESENT. Cytology Laboratory [address] [place] [address], [address] [place] [address] CYTOLOGY REPORT Name: Pepe Pino : 1980 (Age: 35) Sex: F Location: [facility] Med. Rec. # [id number] Date Collected: 08/01/2015 Billing #: [id number] Date Received: 08/01/2015 Requisition # [id number] Physician(s): SHERIN SANTANA MD Source of Specimen: ENDOCERVICAL/ECTOCERVICAL THIN PREP Clinical Information: Date of Last Menstrual Period: 02/2015 tfn Electronic Signature ANGLE Briggs (ASCP) Reported: 08/05/2015 [facility] [employer] [facility] Dx Code(s): Z30.430 60 Note: Persistent reduction for 3 months or more in an eGFR <60 mL/min/1.73 m2 defines CKD. Patients with eGFR values >/=60 mL/min/1.73 m2 may also have CKD if evidence of persistent proteinuria is present. The original MDRD equation for estimated GFR is not valid for patients less than 18 years of age. Additional information may be found at www.[email or web address]. 61 Elevated levels of HbA1c suggest the need for more aggressive treatment of glycemia. The [place] [employer] recommends that a primary goal of therapy should be a HbA1c of <7% and that physicians should re-evaluate the treatment regimen in patients with HbA1c values consistently >8%. 62 SEE RESULT BELOW Name: ALVAREZCANDEIESHAIgor Mariela : [address]: Chelsie Mcallister MD Acct: [id number] Unit: [id number] AGE: 34 Location: [facility] Re03/02/15 SEX: F Status: DEP ER SPEC: [id number] DHARMESH: 03/02/15-[address] [facility] [address]: Aura CHACON REQ: [id number] RECD: 03/02/15 STATUS: KARLA LARIOS DR: Chelsie Santana MD _ SOURCE: URINE SPDESC: ORDERED: Urine Culture Procedure Result Verified Site Urine Culture Final 03/04/15- 1109 ML Organism 1 NORMAL SHELLEY [place] Count 1-10,000 (Few) CFU/ML * ML - MAIN LAB (PSC1) . END OF REPORT * ML = Testing performed at Main Lab DEPARTMENT OF PATHOLOGY, [address] [place] [address] Ken Yanez M.D. Director [facility] # [id number] 63 Note: Persistent reduction for 3 months or more in an eGFR <60 mL/min/1.73 m2 defines CKD. Patients with eGFR values >/=60 mL/min/1.73 m2 may also have CKD if evidence of persistent proteinuria is present. The original MDRD equation for estimated GFR is not valid for patients less than 18 years of age. Additional information may be found at [email or web address]. 64 Elevated levels of HbA1c suggest the need for more aggressive treatment of glycemia. The [place] [employer] recommends that a primary goal of therapy should be a HbA1c of <7% and that physicians should re-evaluate the treatment regimen in patients with HbA1c values consistently >8%. 65 Reference Guidelines*: Desirable: ........... < 200 mg/dL Borderline High: ..... 200-239 mg/dL High: ................ >= 240 mg/dL * The National Cholesterol Education Program (NCEP) 66 Reference Guidelines*: Normal: ............. < 150 mg/dL Borderline High: .... 150-199 mg/dL High: ............... 200-499 mg/dL Very High: .......... > 500 mg/dL * Source: National Cholesterol Education Program (NCEP) 67 Reference Guidelines*: Low HDL: ..... < 40 mg/dL Normal: ..... 40-60 mg/dL Desirable: ... > 60 mg/dL *The National Cholesterol Education Program(NCEP) 68 Reference Guidelines*: Optimal:........... <100 mg/dL Near Optimal....... 100-129 mg/dL Borderline High.... 130-159 mg/dL High............... 160-189 mg/dL Very High.......... >=190 mg/dL * Source: National Cholesterol Education Program (NCEP) 69 Note: Persistent reduction for 3 months or more in an eGFR <60 mL/min/1.73 m2 defines CKD. Patients with eGFR values >/=60 mL/min/1.73 m2 may also have CKD if evidence of persistent proteinuria is present. The original MDRD equation for estimated GFR is not valid for patients less than 18 years of age. Additional information may be found at www.[email or web address]. 70 Elevated levels of HbA1c suggest the need for more aggressive treatment of glycemia. The [place] [employer] recommends that a primary goal of therapy should be a HbA1c of <7% and that physicians should re-evaluate the treatment regimen in patients with HbA1c values consistently >8%. 71 Note: Persistent reduction for 3 months or more in an eGFR <60 mL/min/1.73 m2 defines CKD. Patients with eGFR values >/=60 mL/min/1.73 m2 may also have CKD if evidence of persistent proteinuria is present. The original MDRD equation for estimated GFR is not valid for patients less than 18 years of age. Additional information may be found at www.[email or web address]. 72 A1c value between 5.7% and 6.4% is considered at increased risk for diabetes. A1c value greater than 6.5 % is considered essentially diagnostic for Type II diabetes. Current guidelines recommend a treatment goal of <7% for diabetic patients. This method will measure glycosylated hemoglobin variants, HbS, HbG , HbH, HbWayne, HbC, HbE, etc. Other hemoglobin- opathies may give incorrect results with this test. 73 Performed at: - [facility] [address] [id number] Box Brander: Lenora Cheng MD, Phone: [phone] Performed at: - [facility] [address] [id number] Box Brander: Jeff Benavides MD, Phone: [phone] 74 Note: Persistent reduction for 3 months or more in an eGFR <60 mL/min/1.73 m2 defines CKD. Patients with eGFR values >/=60 mL/min/1.73 m2 may also have CKD if evidence of persistent proteinuria is present. The original MDRD equation for estimated GFR is not valid for patients less than 18 years of age. Additional information may be found at www.[email or web address]. 75 A1c value between 5.7% and 6.4% is considered at increased risk for diabetes. A1c value greater than 6.5 % is considered essentially diagnostic for Type II diabetes. Current guidelines recommend a treatment goal of <7% for diabetic patients. This method will measure glycosylated hemoglobin variants, HbS, HbG , HbH, HbWayne, HbC, HbE, etc. Other hemoglobin- opathies may give incorrect results with this test. 76 Therapeutic target for the treatment of diabetes Mellitus patients is <7% HBA1C, and in selective patients <6.0%.Please refer to [place] [employer] Diabetic care guidelines for further information. 77 Because ethnic data is not always readily available, this report includes an eGFR for both -Americans and non- Americans. The National Kidney Disease Education Program (NKDEP) does not endorse the use of the MDRD equation for patients that are not between the ages of 18 and 70, are , have extremes of body size, muscle mass, or nutritional status, or are non- or non-. According to the National Kidney Foundation, irrespective of diagnosis, the stage of the disease is based on the level of kidney function: Stage Description GFR(mL/min/1.73 m(2)) 1 Kidney damage with normal or decreased GFR 90 2 Kidney damage with mild decrease in GFR 60- 89 3 Moderate decrease in GFR 30-59 4 Severe decrease in GFR 15-29 5 Kidney failure <15 (or dialysis) 78 Therapeutic target for the treatment of diabetes Mellitus patients is <7% HBA1C, and in selective patients <6.0%.Please refer to [place] [employer] Diabetic care guidelines for further information. 79 Because ethnic data is not always readily available, this report includes an eGFR for both -Americans and non- Americans. The National Kidney Disease Education Program (NKDEP) does not endorse the use of the MDRD equation for patients that are not between the ages of 18 and 70, are , have extremes of body size, muscle mass, or nutritional status, or are non- or non-. According to the National Kidney Foundation, irrespective of diagnosis, the stage of the disease is based on the level of kidney function: Stage Description GFR(mL/min/1.73 m(2)) 1 Kidney damage with normal or decreased GFR 90 2 Kidney damage with mild decrease in GFR 60- 89 3 Moderate decrease in GFR 30-59 4 Severe decrease in GFR 15-29 5 Kidney failure <15 (or dialysis) 80 HDL Interpretation: Undesirable: High Risk: Less than 40 mg/dL Desirable: Low Risk: Greater than 60 mg/dL 81 LDL Interpretation: Low Risk Optimal Level: LDL Less than 100 mg/dL Near or Above Optimal: LDL 100-129 mg/dL Borderline High Risk: LDL 130-159 mg/dL High Risk : LDL 160-189 mg/dL Very High Risk: LDL Greater than 189 mg/dL 82 Microalbuminuria in a random sample is defined as: Microalbumin/Creatinine ratio of 30-299 ug/mg. 83 Increased insulin at OV 84 Therapeutic target for the treatment of diabetes Mellitus patients is <7% HBA1C, and in selective patients <6.0%.Please refer to [place] [employer] Diabetic care guidelines for further information. 85 Because ethnic data is not always readily available, this report includes an eGFR for both -Americans and non- Americans. The National Kidney Disease Education Program (NKDEP) does not endorse the use of the MDRD equation for patients that are not between the ages of 18 and 70, are , have extremes of body size, muscle mass, or nutritional status, or are non- or non-. According to the National Kidney Foundation, irrespective of diagnosis, the stage of the disease is based on the level of kidney function: Stage Description GFR(mL/min/1.73 m(2)) 1 Kidney damage with normal or decreased GFR 90 2 Kidney damage with mild decrease in GFR 60- 89 3 Moderate decrease in GFR 30-59 4 Severe decrease in GFR 15-29 5 Kidney failure <15 (or dialysis) 86 HDL Interpretation: Undesirable: High Risk: Less than 40 mg/dL Desirable: Low Risk: Greater than 60 mg/dL 87 LDL Interpretation: Low Risk Optimal Level: LDL Less than 100 mg/dL Near or Above Optimal: LDL 100-129 mg/dL Borderline High Risk: LDL 130-159 mg/dL High Risk : LDL 160-189 mg/dL Very High Risk: LDL Greater than 189 mg/dL 88 Unable to calculate Ind Bili as D Bili is <0.1 Unable to calculate Ind Bili as D Bili is <0.1 89 Therapeutic target for the treatment of diabetes Mellitus patients is <7% HBA1C, and in selective patients <6.0%.Please refer to [place] [employer] Diabetic care guidelines for further information. 90 Because ethnic data is not always readily available, this report includes an eGFR for both -Americans and non- Americans. The National Kidney Disease Education Program (NKDEP) does not endorse the use of the MDRD equation for patients that are not between the ages of 18 and 70, are , have extremes of body size, muscle mass, or nutritional status, or are non- or non-. According to the National Kidney Foundation, irrespective of diagnosis, the stage of the disease is based on the level of kidney function: Stage Description GFR(mL/min/1.73 m(2)) 1 Kidney damage with normal or decreased GFR 90 2 Kidney damage with mild decrease in GFR 60- 89 3 Moderate decrease in GFR 30-59 4 Severe decrease in GFR 15-29 5 Kidney failure <15 (or dialysis) 91 Therapeutic target for the treatment of diabetes Mellitus patients is <7% HBA1C, and in selective patients <6.0%.Please refer to [place] [employer] Diabetic care guidelines for further information. 92 Because ethnic data is not always readily available, this report includes an eGFR for both -Americans and non- Americans. The National Kidney Disease Education Program (NKDEP) does not endorse the use of the MDRD equation for patients that are not between the ages of 18 and 70, are , have extremes of body size, muscle mass, or nutritional status, or are non- or non-. According to the National Kidney Foundation, irrespective of diagnosis, the stage of the disease is based on the level of kidney function: Stage Description GFR(mL/min/1.73 m(2)) 1 Kidney damage with normal or decreased GFR 90 2 Kidney damage with mild decrease in GFR 60- 89 3 Moderate decrease in GFR 30-59 4 Severe decrease in GFR 15-29 5 Kidney failure <15 (or dialysis) 93 Therapeutic target for the treatment of diabetes Mellitus patients is <7% HBA1C, and in selective patients <6.0%.Please refer to [place] [employer] Diabetic care guidelines for further information. 94 Because ethnic data is not always readily available, this report includes an eGFR for both -Americans and non- Americans. The National Kidney Disease Education Program (NKDEP) does not endorse the use of the MDRD equation for patients that are not between the ages of 18 and 70, are , have extremes of body size, muscle mass, or nutritional status, or are non- or non-. According to the National Kidney Foundation, irrespective of diagnosis, the stage of the disease is based on the level of kidney function: Stage Description GFR(mL/min/1.73 m(2)) 1 Kidney damage with normal or decreased GFR 90 2 Kidney damage with mild decrease in GFR 60- 89 3 Moderate decrease in GFR 30-59 4 Severe decrease in GFR 15-29 5 Kidney failure <15 (or dialysis) 95 [facility] [address] [place] [address], [address] [place] [address] CYTOLOGY REPORT Name: Pepe PinoGrant : 1980 (Age: 32) Sex: F Location: [facility] Med. Rec. # Date Collected: 07/27/2012 Billing #: [id number] Date Received: 07/27/2012 Physician(s): KEILA BURKS NP Source of Specimen: ENDOCERVICAL/ECTOCERVICAL THIN PREP Clinical Information: Date of Last Menstrual Period: None Provided Menstrual History: Irregular Specimen Adequacy: SATISFACTORY FOR EVALUATION. ADEQUATE ENDOCERVICAL/TRANSFORMATION ZONE. General Categorization: NEGATIVE FOR INTRAEPITHELIAL LESION OR MALIGNANCY. blake Electronic Signature Jerry Wisdom MD Reported: 07/29/2012 Also seen by: ANGLE Nunn (ASCP) Cytology [facility] ICD-9 Code(s) V72.31 96 Therapeutic target for the treatment of diabetes Mellitus patients is <7% HBA1C, and in selective patients <6.0%.Please refer to [place] [employer] Diabetic care guidelines for further information. 97 Test Performed by: [place] [address] Risk Manager: Hong Sears III, M.D. R 98 Because ethnic data is not always readily available, this report includes an eGFR for both -Americans and non- Americans. The National Kidney Disease Education Program (NKDEP) does not endorse the use of the MDRD equation for patients that are not between the ages of 18 and 70, are , have extremes of body size, muscle mass, or nutritional status, or are non- or non-. According to the National Kidney Foundation, irrespective of diagnosis, the stage of the disease is based on the level of kidney function: Stage Description GFR(mL/min/1.73 m(2)) 1 Kidney damage with normal or decreased GFR 90 2 Kidney damage with mild decrease in GFR 60- 89 3 Moderate decrease in GFR 30-59 4 Severe decrease in GFR 15-29 5 Kidney failure <15 (or dialysis) 99 A metabolite of Naproxen, O-desmethylnaproxen, has been shown to interfere with the Jendrassik-Sneha method for measuring total bilirubin. Samples from patients who have taken Naproxen have shown spurious elevation in total bilirubin levels. 100 Desirable: Less than 200 MG/DL Borderline-High Risk: 200-239 MG/DL High- Risk: 240 MG/DL and over 101 HDL Interpretation: Undesirable: High Risk: Less than 40 MG/DL Desirable: Low Risk: Greater than 60 MG/DL 102 Microalbuminuria in a random sample is defined as: Microalbumin/ Creatinine ratio of 30-299 ug/mg. 103 [facility] [address] [place] [address], [address] [place] [address] GC / CHLAMYDIA REPORT Name: Pepe Pino : 1980 (Age: 32) Sex: F Location: [facility] Med Rec. # Date Collected: 07/27/2012 Billing #: [id number] Date Received: 07/27/2012 Physician(s): KEILA BURKS NP Source of Specimen: ThinPrep , APTIMA Results: Neisseria gonorrhoeae NEGATIVE Chlamydia trachomatis NEGATIVE Comment: This analysis was performed using second generation nucleic acid amplification testing (NAAT). Reported: 07/28/2012 Electronic Signature * [facility] Regina Chanel [facility] ICD-9 Codes: A: V72.31 104 ------- RUN DATE: 06/26/12 [facility] LIVE PAGE 1 RUN TIME: 0845 Specimen Inquiry RUN USER: INTERFACE ---- Name: PEPE PINO Status: REG REF Re Age/Sex: 32/F Unit#: [id number] Location: [facility] : [birth year] ---- SPEC #: [id number] DHARMESH: 06/24/12 STATUS: COMP REQ #: [id number] RECD: 06/24/[address]: Suzanne DOWD,Keila Stephenie SOURCE: URINE ENTR: 06/24/[address]: [facility]: ORDERED: URINE C S QUERIES: MEDENT REQUISITION # [id number] SPECIMEN DESCRIPTION: URINE, RANDOM ACT WKST: UR 06/26/12 #1 ---- Procedure Result Verified Site ---- > URINE CULTURE SENSITIVI Final 06/26/12-0845 ML Organism 1 BETA STREP GROUP B Susceptibility testing of penicillins and other B-lactams approved by FDA for treatment of Streptococcus pyogenes (Group A Strep) and Streptococcus agalactiae (Group B Strep) is not necessary for clinical purposes and need not be done routinely, since as with vancomycin, resistant strains have not been recognized. (CLSI W054-A55;p.66) Positive isolates will be saved for one week. Please call the Microbiology Laboratory if further susceptibility testing is needed. COLONY COUNT 1-10,000 ORGANISMS/ML (FEW) ---- [facility] Permit #[id number] [address] [place] [address] ---- DEPARTMENT OF PATHOLOGY, [address] [place] [address] [facility] Permit #[id number] Ken Yanez M.D. Director Stanislaw Rolon M.D. Recordings Librarian ---- 105 THERAPEUTIC TARGET FOR THE TREATMENT OF DIABETES MELLITUS PATIENTS IS <7% HBA1C, AND IN SELECTIVE PATIENTS <6.0%. PLEASE REFER TO [place] [employer]ATION DIABETIC CARE GUIDELINES FOR FURTHER INFORMATION. 106 Anion gap measurement may be of limited value in the presence of any alkalosis, especially in a combined acid base disorder. . 107 A metabolite of Naproxen, O-desmethylnaproxen, has been shown to interfere with the Jendrritaik-Sneha method for measuring total bilirubin. Samples from patients who have taken Naproxen have shown spurious elevation in total bilirubin levels. 108 Because ethnic data is not always readily available, this report includes an eGFR for both -Americans and non- Americans. The National Kidney Disease Education Program (NKDEP) does not endorse the use of the MDRD equation for patients that are not between the ages of 18 and 70, are , have extremes of body size, muscle mass, or nutritional status, or are non- or non-. According to the National Kidney Foundation, irrespective of diagnosis, the stage of the disease is based on the level of kidney function: Stage Description GFR(mL/min/1.73 m(2)) 1 Kidney damage with normal or decreased GFR 90 2 Kidney damage with mild decrease in GFR 60- 89 3 Moderate decrease in GFR 30-59 4 Severe decrease in GFR 15-29 5 Kidney failure <15 (or dialysis) 109 THERAPEUTIC TARGET FOR THE TREATMENT OF DIABETES MELLITUS PATIENTS IS <7% HBA1C, AND IN SELECTIVE PATIENTS <6.0%. PLEASE REFER TO [place] [employer] DIABETIC CARE GUIDELINES FOR FURTHER INFORMATION. 110 CHOLESTEROL INTERPRETATION: Desirable: Less than 200 MG/DL Borderline- High Risk: 200-239 MG/DL High-Risk: 240 MG/DL and over 111 HDL INTERPRETATION: Undesirable: High Risk: Less than 40 MG/DL Desirable: Low Risk: Greater than 60 MG/DL 112 LDL INTERPRETATION: Low Risk Optimal Level: LDL Less than 100 MG/DL Near or Above Optimal: LDL 100-129 MG/DL Borderline High Risk: LDL 130-159 MG/DL High Risk : LDL 160-189 MG/DL Very High Risk: LDL Greater than 189 MG/DL 113 Anion gap measurement may be of limited value in the presence of any alkalosis, especially in a combined acid base disorder. . 114 A metabolite of Naproxen, O-desmethylnaproxen, has been shown to interfere with the Jendrassik-Sneha method for measuring total bilirubin. Samples from patients who have taken Naproxen have shown spurious elevation in total bilirubin levels. 115 Because ethnic data is not always readily available, this report includes an eGFR for both -Americans and non- Americans. The National Kidney Disease Education Program (NKDEP) does not endorse the use of the MDRD equation for patients that are not between the ages of 18 and 70, are , have extremes of body size, muscle mass, or nutritional status, or are non- or non-. According to the National Kidney Foundation, irrespective of diagnosis, the stage of the disease is based on the level of kidney function: Stage Description GFR(mL/min/1.73 m(2)) 1 Kidney damage with normal or decreased GFR 90 2 Kidney damage with mild decrease in GFR 60- 89 3 Moderate decrease in GFR 30-59 4 Severe decrease in GFR 15-29 5 Kidney failure <15 (or dialysis) 116 Lymphopenia % H H Check Failed Procedures Date Code Description Status 01/29/2018 [id number] Diabetic Foot Exam Completed 03/27/2016 47248 Radiology, Shoulder: Two Views (Sso) Completed 02/27/2016 64327 EKG-Tracing And Report Completed 08/01/2015 93500 Insertion Of Intrauterine Device Completed Encounters Type Date Location Provider Dx Diagnosis Office Visit 02/16/2019 Family Aurelia Sims, E11.39 Type 2 diabetes w 8:45a Jamin Rudolph 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 Chondrocostal junction syndrome [Tietze] I10 Essential (primary) hypertension J30.9 Allergic rhinitis, unspecified Office Visit 12/04/2018 11:30a Family Medicine Ramona Krause, J20.9 Acute bronchitis, West RD FACILITY ENGINEER unspecified R06.2 Wheezing Office Visit 10/20/2018 Family Sims, E11.39 Type 2 diabetes w 1:00p Medicine YANNA Barksdale ot diabetic RD ophthalmic complication E03.9 Hypothyroidism, unspecified J01.90 Acute sinusitis, unspecified I10 Essential (primary) hypertension Office Visit 08/24/2018 3:45p Family Medicine Taqueria Salcedo, J06.9 Acute upper West JASON MD respiratory infection, unspecified Office Visit 07/21/2018 1:30p Family Aurelia Sims, E11.39 Type 2 diabetes w Jamin Rudolph ot diabetic , FACILITY ENGINEER ophthalmic complication E03.9 Hypothyroidism, unspecified I10 Essential (primary) hypertension Office Visit 06/30/2018 Family Sims E03.9 Hypothyroidism, 11:00a YANNA Valentine unspecified RD Z23 Encounter for immunization Office Visit 04/14/2018 2:30p Family Medicine Karlie Sainz, E11.39 Type 2 diabetes w Jamin GOMEZ M.D. oth diabetic ophthalmic complication E78.5 Hyperlipidemia, unspecified E03.9 Hypothyroidism, unspecified I10 Essential (primary) hypertension Office Visit 01/13/2018 1:30p Family Karlie Lam, E11.39 Type 2 diabetes w Jamin GOMEZ M.D. ot diabetic ophthalmic complication E78.5 Hyperlipidemia, unspecified E03.9 Hypothyroidism, unspecified F43.0 Acute stress reaction I10 Essential (primary) hypertension Office Visit 12/17/2017 1:45p [facility] Karlie Lam, F43.0 Acute stress Jamin GOMEZ M.D. reaction M62.838 Other muscle spasm Office Visit 10/14/2017 1:00p [facility] Karlie Sainz, E11.65 Type 2 diabetes Jamin GOMEZ M.D. mellitus with hyperglycemia E78.5 Hyperlipidemia, unspecified E03.9 Hypothyroidism, unspecified I10 Essential (primary) hypertension D50.0 Iron deficiency anemia secondary to blood loss (chronic) Office Visit 09/19/2017 1:45p [facility] Karlie Lam, R10.815 Periumbilic Jamin GOMEZ M.D. abdominal tenderness E11.65 Type 2 diabetes mellitus with hyperglycemia Office Visit 07/18/2017 1:00p Family Higginbotham, Z01.818 Encounter for other Medicine Jamin Jasso MD preprocedural RD examination H43.12 Vitreous hemorrhage, left eye E11.65 Type 2 diabetes mellitus with hyperglycemia I10 Essential (primary) hypertension E78.5 Hyperlipidemia, unspecified E03.9 Hypothyroidism, unspecified Office Visit 07/15/2017 1:15p [facility] Karlie Lam, E11.65 Type 2 diabetes Jamin GOMEZ M.D. mellitus with hyperglycemia I10 Essential (primary) hypertension E03.9 Hypothyroidism, unspecified E78.5 Hyperlipidemia, unspecified K21.9 Gastro-esophageal reflux disease without esophagitis Z23 Encounter for immunization Office Visit 05/29/2017 2:00p Family Sims, R10.11 Right upper Medicine Jamin Rudolph FACILITY ENGINEER quadrant pain RD K75.81 Nonalcoholic steatohepatitis ([place]) R94.4 Abnormal results of kidney function studies Office Visit 05/15/2017 3:30p Family Sims, R10.11 Right upper Medicine Jamin Rudolph FACILITY ENGINEER quadrant pain RD E66.9 Obesity, unspecified Office Visit 04/15/2017 1:00p Family Medicine Karlie Sainz, E11.65 Type [address] M.D. mellitus with hyperglycemia I10 Essential (primary) hypertension E03.9 Hypothyroidism, unspecified E78.5 Hyperlipidemia, unspecified Z23 Encounter for immunization Office Visit 02/04/2017 2:00p Family Medicine Karlie Sainz, E11.65 Type [address] M.D. mellitus with hyperglycemia N92.1 Excessive and frequent menstruation with irregular cycle E03.9 Hypothyroidism, unspecified I10 Essential (primary) hypertension Office Visit 01/24/2017 11:00a [facility] Digna, N94.6 Dysmenorrhea, Medicine West Catalina Harman, unspecified RD FACILITY ENGINEER-C Office Visit 01/07/2017 9:45a [facility] Karlie Sainz, E11.65 Type 2 diabetes Medicine West M.D. mellitus with RD hyperglycemia G47.00 Insomnia, unspecified Office Visit 12/31/2016 9:30a Family Medicine Kade E11.65 Type [address] Bianca, mellitus with PNP-BC, FACILITY ENGINEER, hyperglycemia Ibclc Office Visit 12/04/2016 11:30a Family Medicine Kade, N94.6 Dysmenorrhea, West RD Bianca, unspecified PNP-BC, FACILITY ENGINEER, Ibclc Office Visit 10/15/2016 1:00p [facility] Medicine Karlie Sainz, E11.42 Type [address] M.D. mellitus with diabetic polyneuropathy E03.9 Hypothyroidism, unspecified E78.5 Hyperlipidemia, unspecified D41.02 Neoplasm of uncertain behavior of left kidney Office Visit 08/12/2016 1:00p Family Medicine Bianca Braun, J01.90 Acute sinusitis, West RD PNP-BC, FACILITY ENGINEER, unspecified Ibclc E11.42 Type 2 diabetes mellitus with diabetic polyneuropathy J30.9 Allergic rhinitis, unspecified Office Visit 07/16/2016 1:00p [facility] Medicine Karlie Sainz, E11.42 Type [address] M.D. mellitus with diabetic polyneuropathy E78.5 Hyperlipidemia, unspecified M54.5 Low back pain E03.9 Hypothyroidism, unspecified I10 Essential (primary) hypertension Z23 Encounter for immunization Office Visit 04/01/2016 Family Medicine Chanda, R10.9 Unspecified 11:15a West RD Sherin, M.D. abdominal pain Office Visit 03/27/2016 Orthopaedic EarnestSimon veronica, M25.511 Pain in right 3:15p Office M.DrGant shoulder Office Visit 02/27/2016 Family Aurelia Santana, E11.42 Type 2 diabetes 1:00p Tilly JASON Duff M.D. mellitus with diabetic polyneuropathy E78.5 Hyperlipidemia, unspecified R07.89 Other chest pain Z79.4 care home (current) use of insulin M94.0 Chondrocostal junction syndrome [Tietze] E03.9 Hypothyroidism, unspecified Office Visit 02/14/2016 10:15a [facility] Karlie Sainz, M25.511 Pain in right [facility] Jamin Parra shoulder RD Office Visit 10/30/2015 1:15p Family Santana K11.20 Sialoadenitis, aisha Villa RD, M.D. Office Visit 10/24/2015 1:00p Family Santana, E11.42 Type 2 diabetes Aurelia Duff, mellitus with JASON Parra diabetic polyneuropathy E78.5 Hyperlipidemia, unspecified E03.9 Hypothyroidism, unspecified M54.5 Low back pain Office Visit 09/12/2015 Family Santana, J15.8 Pneumonia due to 11:15a Aurelia Duff M.D. other specified RD bacteria Office Visit 08/01/2015 Family Santana, Z30.430 Encounter for 1:30p Aurelia Duff M.D. insertion of RD intrauterine contraceptive device Z72.0 Tobacco use Office Visit 06/20/2015 Family Santana, E11.42 Type 2 diabetes 1:00p Aurelia Duff M.D. mellitus with RD diabetic polyneuropathy E78.5 Hyperlipidemia, unspecified F17.210 Nicotine dependence, cigarettes, uncomplicated E03.9 Hypothyroidism, unspecified Z30.09 Encounter for oth general coun and advice on contraception V04.81 Need For Prophylactic Vaccination & Inoculation/Influenza Office Visit 02/14/2015 Family Santana, 250.60 Diabetes W/ 1:00p Aurelia Duff M.D. Neurological RD Manifestations Type II Controlled 272.4 Hyperlipidemia Other Unspec 305.1 Tobacco Use Disorder 782.3 Edema Plan of Treatment Future Appointment(s):05/18/2019 1:00 pm - Klaudia Sims FNP at [facility] RD04/28/2019 - Bianca Braun, PNP-BC, FACILITY ENGINEER, EticdJ81.15 Urgency of urinationNew Medication:Nitrofurantoin Monohyd Macro 100 mg - 1 by mouth twice a dayDiflucan 150 mg - take 1 by mouth once you finish your antibiotics if awpmchV84.0 Dysuria
[2019-05-23 18:58] VITALS: BP 141/74
--- NOTE | 2019-05-23 19:03 | UC ---
Upper Extremity HPI - HPI Summary HPI Summary: Fell 3 nights ago down multiple steps hitting the bottom of her R leg and foot. She feels pain and swelling is worsening. has not put her feet up. has used nsaids w/ some relief. - History of Current Complaint Chief Complaint: UCLowerExtremity Stated Complaint: RIGHT FOOT INJURY Time Seen by Provider: 05/23/19 18:56 Hx Obtained From: Patient Hx Last Menstrual Period: unsure, pt has IUD Onset/Duration: Sudden Onset Pain Intensity: 3 Pain Scale Used: 0-10 Numeric Character: Sharp, Aching Aggravating Factor(s): Movement Alleviating Factor(s): OTC Meds Associated Signs And Symptoms: Positive: Swelling, Redness. Negative: Bruising , Fever, Numbness/Tingling - Allergies/Home Medications Allergies/Adverse Reactions: Allergies Allergy/AdvReac Type Severity Reaction Status Date / Time lisinopril Allergy Coughing Verified 05/23/19 18:58 Home Medications: Home Medications Cetirizine* [ZyrTEC 10 MG TAB*] 1 tab PO DAILY 05/23/19 [History Confirmed 05/23] Fluticasone NASAL SPRAY 50MCG* [Flonase NASAL SPRAY 50MCG*] 1 spray INH DAILY [History Confirmed 05/23/19] PMH/Surg Hx/FS Hx/Imm Hx Previously Healthy: Yes Endocrine History: Diabetes Cardiovascular History: Hypertension - Surgical History Surgical History: Yes Surgery Procedure, Year, and Place: Left Vitrectomy, 2018, [place]; , 2003; Tonsillectomy, ~1992 - Family History Known Family History: Positive: Hypertension, Diabetes - Social History Alcohol Use: Occasionally Alcohol Amount: 2 times a week Substance Use Type: None Smoking Status (MU): Former Smoker Type: Cigarettes Amount Used/How Often: 5 per day Length of Time of Smoking/Using Tobacco: 10/09 PPD x 15 Years Have You Smoked in the Last Year: Yes When Did the Patient Quit Smoking/Using Tobacco: 09/05/2015 - Immunization History Most Recent Influenza Vaccination: [id number] Most Recent Tetanus Shot: UNKNOWN Review of Systems All Other Systems Reviewed And Are Negative: Yes Constitutional: Negative: Fever Skin: Negative: Rash Respiratory: Positive: Negative Cardiovascular: Positive: Negative Musculoskeletal: Positive: Decreased ROM, Edema, Myalgia Neurological: Negative: Paresthesia, Numbness Physical Exam Triage Information Reviewed: Yes Appearance: Well-Appearing Vital Signs: Initial Vital Signs Temp 98.1 F 05/23/19 18:54 Pulse 95 05/23/19 18:54 Resp 18 05/23/19 18:54 BP 141/74 05/23/19 18:54 Pulse Ox 100 05/23/19 18:54 Vital Signs Reviewed: Yes Respiratory: Positive: No respiratory distress Cardiovascular: Positive: Pulses Normal - R pedal pulses Musculoskeletal: Positive: ROM Limited @ - R ankle, Edema @ - R lateral foot Neurological: Positive: Alert Skin: Positive: Other - tenderness at R lower leg w/ healing abrasions. Diagnostics - Radiology No standard instances Radiology Interpretation Completed By: ED Physician Summary of Radiographic Findings: NO obvious fractures, R 5th metatarsal has old fx. Upper Extremity Course/Dx - Course Course Of Treatment: Fell 3 nights ago hitting her R lower leg/foot. Pain was worsening so she came in. XRAY did not show any obvious fx's but on exam there was moderate swelling at R lateral foot. For now have advised for her to keep CAM boot on for stability, to raise leg when she gets home, nsaids for pain and topical antibx ointment for the abrasions. Discussed the possibility she will get call from radiologist if fx exists. - Differential Dx/Diagnosis Differential Diagnosis/HQI/PQRI: Contusion, Laceration, Strain, Sprain Provider Diagnosis: Contusion Discharge - Sign-Out/Discharge Documenting (check all that apply): Patient Departure All imaging exams completed and their final reports reviewed: No - Discharge Plan Condition: Good Disposition: HOME Prescriptions: Ibuprofen [Ibu] 600 mg PO TID 14 Days #42 tablet Patient Education Materials: Swollen Joint (ED) Forms: *Work Release Referrals: Yanet Sims NP [Primary Care Provider] - Additional Instructions: We will call you once the radiologist reads the imaging tomorrow. Please call if you have not heard anything. - Billing Disposition and Condition Condition: GOOD Disposition: Home
--- NOTE | 2019-05-24 20:21 | UC ---
- Progress Note Progress Note: Final radiologist reading for May 23, 2019 for right foot and right tibia- fibula fibula comes back is soft tissue swelling no fracture. Provider interpretation of the same date also was no fracture therefore there is no discrepancy. Course/Dx - Diagnoses Provider Diagnoses: Contusion Discharge - Sign-Out/Discharge Documenting (check all that apply): Patient Departure All imaging exams completed and their final reports reviewed: Yes - Discharge Plan Condition: Good Disposition: HOME Prescriptions: Ibuprofen [Ibu] 600 mg PO TID 14 Days #42 tablet Patient Education Materials: Swollen Joint (ED) Forms: *Work Release Referrals: Yanet Sims NP [Primary Care Provider] - Additional Instructions: We will call you once the radiologist reads the imaging tomorrow. Please call if you have not heard anything. - Billing Disposition and Condition Condition: GOOD Disposition: Home
== END 2019-05-23 19:55 | disposition home or self-care (01) ==
LOC: UCCORT 18:46
DX: S90.31XA Contusion of right foot, initial encounter (principal); W10.9XXA Fall (on) (from) unspecified stairs and steps, initial encounter; Y92.9 Unspecified place or not applicable; E11.9 Type 2 diabetes mellitus without complications; I10 Essential (primary) hypertension; Z87.891 Personal history of nicotine dependence
CPT/HCPCS: 99212; G0463

== ENCOUNTER 2019-08-21 17:05 | Emergency (ER) | payer BC ==
--- OUTSIDE RECORDS SUMMARY | 2019-08-21 17:56 | XMS REPORT | Continuity of Care Document ---
:1980 External Reference #:[id number] Author Name Ru Nesbitt M.D. Address [address] [place] [id number] Care Team Providers Name Role Phone Klaudia Sims COMPENSATION AND HRIS ANALYST - Nurse Care Team Information [employer] Practitioner Problems Active Problems Provider Date Type 2 diabetes mellitus Onset: 11/18/2011 Hyperlipidemia Sherin Armas M.D. Onset: 02/08/2014 Hypothyroidism Sherin Armas M.D. Onset: 06/20/2015 Shoulder joint pain Simon Tinoco M.D. Onset: 03/27/2016 Diabetic macular edema Klaudia Sims FNP Onset: 05/09/2016 Note: Sees [facility] Allergic rhinitis Bianca Braun, WILMA-BC, YANNA, Onset: 08/12/2016 Ibclc Nonalcoholic steatohepatitis ([place]) [...] 90tabs Bianca Braun, 04/28/2019 60mg needed PNP-BC, [employer], Tablets Ibclc Onetouch Ultra Blue Use To Test 300units [place], 03/07/2019 Blood Sugar Four Jenravi, Strips Times Daily [employer] Albuterol Sulfate HFA Inhale 2 Puffs 126units [place], 12/04/2018 By Mouth Every 3 [employer] 108(90Base) mcg/Act Hours as Needed Aerosol For Shortness Of Breath Ondansetron HCL 1 tab every 6hr 8tabs [place], 09/18/2018 4mg as needed for Jenniferleigh, Tablets nausea [employer] Levothyroxine Sodium Take 1 Tablet By 90tabs E03.9 [place], 06/30/2018 Mouth Every Day Jenniferjose, 125mcg Tablets In Place Of 100 [employer] mcg Dose Glucagon Emergency SQ or Im, february 3units E11.39 Karlie Sainz, 04/14/2018 1mg repeat in 15 M.D. Kit mins if not adequate response Cyclobenzaprine HCL take 1 tablet by 90tabs M62.838 [place], 01/13/2018 10mg mouth 3 times a Jenniferleifrancois, Tablets day as needed [employer] Valium 1 tab by every 14tabs F43.0 [place], 12/17/2017 10mg Tablets 12 hours as Klaudia, needed anxiety [employer] attack / flying MDD#2 Reference #: [id number] Victoza 1.8mg sq every 27units E11.65 [place], 09/19/2017 18mg/3ML Solution daily Klaudia Pen-Inject [employer] Insulin inject insulin 100units [place], 06/27/2017 Syringe/U-100/1ML/31G as directed Klaudia, X /16" [employer] 31G X 5/16" 1 ML Misc Blood Glucose Test test sugars four 100units E11.65 [place], 01/07/2017 times a day day Klaudia Strips e11.9 [employer] Pentips use as directed 90units [place], 12/31/2016 31G X 5 mm Misc with insulin pen Jenniferleigh, [employer] Furosemide Take 1 Tablet By 90tabs R60.0 [place], 02/14/2015 20mg Tablets Mouth Every Jenniferlei, Morning [employer] Lantus inject 100 units [id number] [place], 02/10/2015 100Unit/ML twice a day..... Jenniferleigh, Solution give enough for [employer] 3months and titrate as directed Losartan Potassium Take 1 Tablet By 90tabs [place], 07/20/2013 25mg Mouth Every Day Jenniferleigh, Tablets [employer] Janumet XR take 1 tablet by 90tabs [place], 05/03/2013 100-1000mg mouth every day Jenfengferjose, Tablets ER 24HR [employer] Simvastatin take 1 tablet by [facility], 11/25/2011 20mg Tablets mouth every day Klaudia, [employer] Mirena (52 MG) inserted Unknown 20mcg/24HR 07/2017, removed IUD 07/2022 History Medications Nitrofurantoin Monohyd 1 by mouth twice a 20caps R39.15 Bianca Braun, - Macro day PNP-BC, [employer], 05/08/2019 100mg Capsules Ibclc Diflucan take 1 by mouth 1tabs R39.15 Bianca Braun, 04/28/2019 - 150mg Tablets once you finish PNP-BC, [employer], 05/06/2019 your antibiotics Ibclc if needed Eq Loratadine one PO qd 30tabs J30.9 [place], 02/16/2019 - 10mg Jenniferleigh, 04/28/2019 Tablets [employer] Immunizations CPT Code Status Date Vaccine Lot # [id number] Given 06/30/2018 Influenza Virus Vaccine, Quadrivalent, 36 Mos+, [id number] .[id number] 31641 Given 07/15/2017 Influenza Virus Vaccine Quadrivalent Iiv4 [place] [id number] [address] Given 04/15/2017 Tdap injection 84340 Given 07/16/2016 Influenza Virus Vaccine, Quadrivalent, 36 Mos+, [id number] .[id number] Q2038 Given 06/20/2015 Influenza Vaccine (Fluzone) Age 3 And Older [id number] 92528 Given 08/03/2013 flu vaccination 19418 Given 06/24/2012 flu vaccination 05501 Given 10/17/2009 H1N1 Immuniation Adminstration Vital Signs Date Vital Result Comment 07/01/2019 1:49pm BP Systolic 120 mmHg BP Diastolic 82 mmHg Height 71 inches 5'11" Weight 283.00 lb BMI (Body Mass Index) 39.5 kg/m2 BSA (Body Surface Area) 2.44 m2 [place] body weight in kilograms 70 kg 05/18/2019 12:48pm BP Systolic Sitting Left Arm 124 mmHg BP Diastolic Sitting Left Arm 76 mmHg Body Temperature 97.9 F Heart Rate 80 /min Respiratory Rate 18 /min Height 71 inches 5'11" Weight 287.00 lb BMI (Body Mass Index) 40.0 kg/m2 BSA (Body Surface Area) 2.46 m2 [place] body weight in kilograms 70 kg Results Test Date Facility Test Result H/L Range Note Glycohemoglobin A1c [facility] [address] Glycohemoglobin 6.4 % High 4.2-6.3 1, 2 9 [address] [facility] (A1c) [place] [address] [phone] eAG 137 mg/dL Laboratory 05/18/2019 [facility] [address] Thyroid 1.62 uIU/mL Normal 0.30- 4.20 test finding [address] [place] [address] Hormone [phone] Urine Culture 04/28/2019 [facility] Urine URETHRAL [address] [place] [place] [address] [phone] Quantity 10,000 - 50,000 <SEE NOTE> 4 Ua Routine 04/28/2019 [facility] Ua Specific [place] 1.025 1.010-1.030 Ua PH 6.0 Low 6.5-7.5 Ua Color Yellow Yellow Ua Appera cloudy Ua WBC 1+ Ua Protein 0.15 High Negative Ua Glucose neg Negative Ua Ketones neg Negative Ua Bilirubin neg Negative Ua Urobilinogen 3.5 High 0.2 - 1.0 E.U./dL Ua Nitrite neg Negative Glycohemoglobin 02/16/2019 [facility] [address] Glycohemoglobin 5.8 % Normal 4.2-6.3 5, 6 A1c [address] [facility] (A1c) [place] [address] [phone] eAG 120 mg/dL Urine Dipstick 02/16/2019 [facility] In[facility] Ua Leuko - Negative Ua Nitrite - Negative Ua Urobilinogen .2 0.2 - 1.0 E.U./dL Ua Protein - Negative Ua PH 6 Low 6.5-7.5 Ua Blood - Negative Ua Specific [place] 1.015 1.010-1.030 Ua Ketones - Negative Ua Bilirubin - Negative Ua Glucose - Negative 1 E11.39 E03.9 2 Elevated levels of HbA1c suggest the need for more aggressive treatment of glycemia. The [place] [employer] recommends that a primary goal of therapy should be a HbA1c of <7% and that physicians should re-evaluate the treatment regimen in patients with HbA1c values consistently >8%. 3 R39.15 4 10,000 - 50,000 CFU/mL 5 E11.39 6 Elevated levels of HbA1c suggest the need for more aggressive treatment of glycemia. The [place] [employer] recommends that a primary goal of therapy should be a HbA1c of <7% and that physicians should re-evaluate the treatment regimen in patients with HbA1c values consistently >8%. Procedures Date Code Description Status 01/29/2018 [id number] Diabetic Foot Exam Completed Medical Devices Description No Information Available Encounters Type Date Location Provider Dx Diagnosis Office Visit 05/18/2019 [facility] [place], E11.39 Type 2 diabetes w 1:[address] Klaudia [facility] diabetic [employer] ophthalmic complication E03.9 Hypothyroidism, unspecified E78.5 Hyperlipidemia, unspecified R10.815 Periumbilic abdominal tenderness Office Visit 04/28/2019 3:45p [facility] Bianca Braun, R39.[address] PNP-BC, [employer], urination Ibclc R30.0 Dysuria Office Visit 02/16/2019 [facility] [place], E11.39 Type 2 diabetes w 8:[address] [facility] [place] YANNA Rudolph ot diabetic RD ophthalmic complication M94.0 Chondrocostal junction syndrome [[place]] I10 Essential (primary) hypertension J30.9 Allergic rhinitis, unspecified Assessments Date Code Description Provider 07/01/2019 K42.9 Umbilical hernia without Ru Nesbitt M.D. obstruction or gangrene 05/18/2019 E11.39 Type 2 diabetes mellitus with Klaudia Sims FNP other diabetic ophthalmic comp 05/18/2019 E03.9 Hypothyroidism, unspecified Klaudia Sims FNP 05/18/2019 E78.5 Hyperlipidemia, unspecified Klaudia Sims FNP 05/18/2019 R10.815 Periumbilic abdominal tenderness Klaudia Sims FNP 04/28/2019 R39.15 Urgency of urination Bianca Braun PNP-BC, YANNA, Ibclc 04/28/2019 R30.0 Dysuria Bianca Braun PNP-BC, YANNA, Ibclc 02/16/2019 E11.39 Type 2 diabetes mellitus with Klaudia Sims FNP other diabetic ophthalmic comp 02/16/2019 M94.0 Chondrocostal junction syndrome Klaudia Sims FNP [[place]] 02/16/2019 I10 Essential (primary) hypertension Klaudia Sims FNP 02/16/2019 J30.9 Allergic rhinitis, unspecified Klaudia Sims FNP Plan of Treatment Future Appointment(s):08/17/2019 2:00 pm - Klaudia Sims FNP at [facility] RD07/01/2019 - Ru Nesbitt M.D.K42.9 Umbilical hernia without obstruction or gangreneComments:Will arrange a preperitoneal repair. Risks, benefits and alternatives were presented. Questions wereaddressed Functional Status Functional Condition Comment Date Status Glasses Active Mental Status Description No Information Available Referrals Refer to Dr Reason for Referral Status Appt Date Ru Nesbitt MD abdominal pain - believes hernia, Scheduled 07/01 abdominal ultrasound inconclusive [address] [place] [address] [phone]
--- OUTSIDE RECORDS SUMMARY | 2019-08-21 17:56 | XMS REPORT | Continuity of Care Document ---
:1980 External Reference #:[id number] Author Name Klaudia Sims FNP Address [address] [place] [id number] Care Team Providers Name Role Phone Klaudia Sims GENERAL TECHNICIAN - Nurse Care Team Information Appointment Coordinator [phone] Practitioner Problems Active Problems Provider Date Type 2 diabetes mellitus Onset: 11/18/2011 Hyperlipidemia Sherin Armas M.D. Onset: 02/08/2014 Hypothyroidism Sherin Armas M.D. Onset: 06/20/2015 Shoulder joint pain Simon Tinoco M.D. Onset: 03/27/2016 Diabetic macular edema Klaudia Smis FNP Onset: 05/09/2016 Note: Sees Retina Vitreous [...] QUIT AT AGE 35 Smoking Status Reviewed: 08/10/19 Quit 09/04/15 1/2 PPD X 9 YRS, QUIT AT AGE 35 Allergies, Adverse Reactions, Alerts Active Allergies Reaction Severity Comments Date Lisinopril cough 07/16/2016 Inactive Allergies NKDA 02/14/2015 Medications Active Medications SIG Qnty Indications Ordering Date Provider Onetouch Ultra Blue Use To Test 300units [place], 03/07/2019 Blood Sugar Jenniferleifrancois, Strips Four Times DEPARTMENT OPERATIONS MANAGER Daily Ondansetron HCL 1 tab every 6hr 8tabs [place], 09/18/2018 4mg as needed for Jenniferleigh, Tablets nausea DEPARTMENT OPERATIONS MANAGER Levothyroxine Sodium Take 1 Tablet 90tabs E03.9 [place], 06/30/2018 By Mouth Every Jenniferleigh, 125mcg Tablets Day In Place Of DEPARTMENT OPERATIONS MANAGER 100 mcg Dose Glucagon Emergency SQ or Im, february 3units E11.39 Karlie Sainz, 04/14/2018 1mg repeat in 15 M.D. Kit mins if not adequate response Cyclobenzaprine HCL take 1 tablet 90tabs M62.838 [place], 01/13/2018 10mg by mouth 3 Jenniferleigh, Tablets times a day as DEPARTMENT OPERATIONS MANAGER needed Victoza 1.8mg sq every 27units E11.65 [place], 09/19/2017 18mg/3ML Solution daily Klaudia Pen-Inject DEPARTMENT OPERATIONS MANAGER Insulin inject insulin 100units [place], 06/27/2017 Syringe/U-100/1ML/31G as directed Klaudia, X 5/16" DEPARTMENT OPERATIONS MANAGER 31G X 5/16" 1 ML Misc Blood Glucose Test test sugars 100units E11.65 [facility], 01/07/2017 four times a Jenfengferleifrancois, Strips day day e11.9 DEPARTMENT OPERATIONS MANAGER Pentips use as directed 90units [place], 12/31/2016 31G X 5 mm Misc with insulin Klaudia pen DEPARTMENT OPERATIONS MANAGER Furosemide Take 1 Tablet 90tabs R60.0 [place], 02/14/2015 20mg Tablets By Mouth Every Jenniferleigh, Morning DEPARTMENT OPERATIONS MANAGER Lantus inject 100 [id number] [place], 02/10/2015 100Unit/ML units twice a [facility], Solution day..... give DEPARTMENT OPERATIONS MANAGER enough for 3months and titrate as directed Losartan Potassium Take 1 Tablet 90tabs [place], 07/20/2013 25mg By Mouth Every Jenniferleigh, Tablets Day DEPARTMENT OPERATIONS MANAGER Janumet XR take 1 tablet 90tabs [place], 05/03/2013 100-1000mg by mouth every Jenniferleigh, Tablets ER 24HR day DEPARTMENT OPERATIONS MANAGER Simvastatin Take 1 Tablet 90tabs [place], 11/25/2011 20mg Tablets By Mouth Every Jenniferleigh, Day DEPARTMENT OPERATIONS MANAGER Mirena (52 MG) inserted Unknown 20mcg/24HR 07/2017, IUD removed 07/2022 History Medications Anel Allergy 1 by mouth as 90tabs Bianca Braun, 04/28/2019 - 60mg needed PNP-BC, DEPARTMENT OPERATIONS MANAGER, 08/10/2019 Tablets Ibclc Nitrofurantoin Monohyd 1 by mouth twice a 20caps R39.15 Bianca Braun, - Macro day PNP-BC, DEPARTMENT OPERATIONS MANAGER, 05/08/2019 100mg Capsules Ibclc Diflucan take 1 by mouth 1tabs R39.15 Bianca Braun, 04/28/2019 - 150mg Tablets once you finish PNP-BC, DEPARTMENT OPERATIONS MANAGER, 05/06/2019 your antibiotics Ibclc if needed Eq Loratadine one PO qd 30tabs J30.9 [place], 02/16/2019 - 10mg Jenniferleigh, 04/28/2019 Tablets DEPARTMENT OPERATIONS MANAGER Immunizations CPT Code Status Date Vaccine Lot # 32073 Given 06/30/2018 Influenza Virus Vaccine, Quadrivalent, 36 Mos+, [id number] .5ML 38381 Given 07/15/2017 Influenza Virus Vaccine Quadrivalent Iiv4 [place] [id number] [address] Given 04/15/2017 Tdap injection 61350 Given 07/16/2016 Influenza Virus Vaccine, Quadrivalent, 36 Mos+, [id number] .5ML Q2038 Given 06/20/2015 Influenza Vaccine (Fluzone) Age 3 And Older [id number] 02105 Given 08/03/2013 flu vaccination 85844 Given 06/24/2012 flu vaccination 35294 Given 10/17/2009 H1N1 Immuniation Adminstration Vital Signs Date Vital Result Comment 08/10/2019 1:13pm BP Systolic 148 mmHg BP Diastolic 88 mmHg Body Temperature 98.9 F Heart Rate 95 /min Respiratory Rate 18 /min Height 71 inches 5'11" Weight 294.00 lb BMI (Body Mass Index) 41.0 kg/m2 BSA (Body Surface Area) 2.48 m2 [place] body weight in kilograms 70 kg O2 % BldC Oximetry 99 % Ra Pain Level 5 sternum and bilateral ribs 08/02/2019 2:01pm BP Systolic 117 mmHg BP Diastolic 77 mmHg Heart Rate 89 /min Height 71 inches 5'11" Weight 291.50 lb BMI (Body Mass Index) 40.7 kg/m2 BSA (Body Surface Area) 2.47 m2 [place] body weight in kilograms 70 kg O2 % BldC Oximetry 98 % Pain Level 1 Results Test Acquired Facility Test Result H/L Range Note Date Laboratory test 07/20/2019 [facility] Urine HCG NEGATIVE Negative 1, [address] (Qualitative) [place] [address] [phone] Glycohemoglobin 05/18/[address] [facility] [address] Glycohemoglobin 6.4 % High 4.2-6.3 3, 4 A1c [address] [facility] (A1c) [place] [address] [phone] eAG 137 mg/dL Laboratory 05/18/2019 [facility] [address] Thyroid 1.62 uIU/mL Normal 0.30- 4.20 test finding [address] [facility] [place] [address] Hormone [phone] Urine Culture 04/28/2019 [facility] Urine URETHRAL [address] [place] [address] [phone] Quantity 10,000 - 50,000 <SEE NOTE> 6 Ua Routine 04/28/2019 [facility] Inhouse Ua Specific [place] 1.025 1.010-1.030 Ua PH 6.0 Low 6.5-7.5 Ua Color Yellow Yellow Ua Appera cloudy Ua WBC 1+ Ua Protein 0.15 High Negative Ua Glucose neg Negative Ua Ketones neg Negative Ua Bilirubin neg Negative Ua Urobilinogen 3.5 High 0.2 - 1.0 E.U./dL Ua Nitrite neg Negative Glycohemoglobin 02/16/[address] [facility] [address] Glycohemoglobin 5.8 % Normal 4.2-6.3 7, [address] (A1c) [place] [address] [phone] eAG 120 mg/dL Urine Dipstick 02/16/2019 [facility] Inhouse Ua Leuko - Negative Ua Nitrite - Negative Ua Urobilinogen .2 0.2 - 1.0 E.U./dL Ua Protein - Negative Ua PH 6 Low 6.5-7.5 Ua Blood - Negative Ua Specific [place] 1.015 1.010-1.030 Ua Ketones - Negative Ua Bilirubin - Negative Ua Glucose - Negative 1 CONSULT 07/16/19 12:00 2 FIRST MORNING SPECIMENS GENERALLY CONTAIN THE HIGHEST CONCENTRATION OF HCG AND ARE RECOMMENDED FOR EARLY DETECTION OF . Method: Quidel QuickVue One-Step Immunoassay 3 E11.39 E03.9 4 Elevated levels of HbA1c suggest the need for more aggressive treatment of glycemia. The [place] [employer] recommends that a primary goal of therapy should be a HbA1c of <7% and that physicians should re-evaluate the treatment regimen in patients with HbA1c values consistently >8%. 5 R39.15 6 10,000 - 50,000 CFU/mL 7 E11.39 8 Elevated levels of HbA1c suggest the need for more aggressive treatment of glycemia. The [place] [employer] recommends that a primary goal of therapy should be a HbA1c of <7% and that physicians should re-evaluate the treatment regimen in patients with HbA1c values consistently >8%. Procedures Date Code Description Status 07/20/2019 38461 Repair umbilical hernia 5 or older; reducible Completed 01/29/2018 780001399 Diabetic Foot Exam Completed Medical Devices Description No Information Available Encounters Type Date Location Provider Dx Diagnosis Office Visit 07/01/2019 Surgical Office [place], K42.9 Umbilical hernia 1:30p Christopher Ken, without obstruction M.D. or gangrene Office Visit 05/18/2019 [facility] [place], E11.39 Type 2 diabetes w 1:00p YANNA Barksdale RD ot diabetic ophthalmic complication E03.9 Hypothyroidism, unspecified E78.5 Hyperlipidemia, unspecified R10.815 Periumbilic abdominal tenderness Office Visit 04/28/2019 3:45p Family Medicine Bianca Braun, R39.15 [facility] [place]ASON PNP-EHSAN, DEPARTMENT OPERATIONS MANAGER, urination Ibclc R30.0 Dysuria [facility] Type 2 diabetes w 8:45a Medicine YANNA Barksdale ot diabetic RD ophthalmic complication M94.0 Chondrocostal junction syndrome [Tietze] I10 Essential (primary) hypertension J30.9 Allergic rhinitis, unspecified Assessments Date Code Description Provider 08/10/2019 M94.0 Chondrocostal junction syndrome DerekdeeYanetYANNA garcia [Tietze] 08/10/2019 E11.39 Type 2 diabetes mellitus with [place] YaquelinkwakuYANNA garcia other diabetic ophthalmic comp 08/10/2019 Z23 Encounter for immunization Derekdee YANNA Rudolph 08/02/2019 K42.9 Umbilical hernia without Karina Carrillo PA obstruction or gangrene 07/20/2019 K42.9 Umbilical hernia without Ru Nesbitt M.D. obstruction or gangrene 07/01/2019 K42.9 Umbilical hernia without Ru Nesbitt M.D. obstruction or gangrene 05/18/2019 E11.39 Type 2 diabetes mellitus with Klaudia Sims FNP other diabetic ophthalmic comp 05/18/2019 E03.9 Hypothyroidism, unspecified Klaudia Sims FNP 05/18/2019 E78.5 Hyperlipidemia, unspecified Klaudia Sims FNP 05/18/2019 R10.815 Periumbilic abdominal tenderness Klaudia Sims FNP 04/28/2019 R39.15 Urgency of urination Bianca Braun, PNP-BC, DEPARTMENT OPERATIONS MANAGER, Ibclc 04/28/2019 R30.0 Dysuria Bianca Braun, PNP-BC, DEPARTMENT OPERATIONS MANAGER, Ibclc 02/16/2019 E11.39 Type 2 diabetes mellitus with Klaudia Sims, DEPARTMENT OPERATIONS MANAGER other diabetic ophthalmic comp 02/16/2019 M94.0 Chondrocostal junction syndrome Klaudia Sims FNP [Tietze] 02/16/2019 I10 Essential (primary) hypertension Klaudia Sims FNP 02/16/2019 J30.9 Allergic rhinitis, unspecified Klaudia Sims FNP Plan of Treatment Future Appointment(s):08/17/2019 2:00 pm - Klaudia Sims FNP at [facility] RD08/02/2019 - Karina Carrillo, PAK42.9 Umbilical hernia without obstruction or gangrene Functional Status Functional Condition Comment Date Status Glasses Active Mental Status Description No Information Available Referrals Refer to Reason for Referral Status Appt Date Ru Nesbitt MD abdominal pain - believes hernia, Closed 2018 abdominal ultrasound inconclusive [address] [place] [address] [phone]
--- OUTSIDE RECORDS SUMMARY | 2019-08-21 17:56 | XMS REPORT | Continuity of Care Document ---
:1980 External Reference #:[id number] Author Name Klaudia Sims FNP Address [address] [place] [id number] Care Team Providers Name Role Phone Klaudia Sims JAVASCRIPT APPLICATION DEVELOPER - Nurse Care Team Information Lieutenant General Practitioner Problems Active Problems Provider Date Type 2 diabetes mellitus Onset: 11/18/2011 Hyperlipidemia Sherin Armas M.D. Onset: 02/08/2014 Hypothyroidism Sherin Armas M.D. Onset: 06/20/2015 Shoulder joint pain Simon Tnioco M.D. Onset: 03/27/2016 Diabetic macular edema Klaudia [...] QUIT AT AGE 35 Smoking Status Reviewed: 08/17/19 Quit 09/04/15 1/2 PPD X 9 YRS, QUIT AT AGE 35 Allergies, Adverse Reactions, Alerts Active Allergies Reaction Severity Comments Date Lisinopril cough 07/16/2016 Inactive Allergies NKDA 02/14/2015 Medications Active Medications SIG Qnty Indications Ordering Date Provider Onetouch Ultra Blue Use To Test 300units [place], 03/07/2019 Blood Sugar Jenniferleifrancois, Strips Four Times SECOND HAND PAPER MACHINE Daily Ondansetron HCL 1 tab every 6hr 8tabs [place], 09/18/2018 4mg as needed for Jenniferleigh, Tablets nausea SECOND HAND PAPER MACHINE Levothyroxine Sodium Take 1 Tablet 90tabs E03.9 [place], 06/30/2018 By Mouth Every Jenniferleigh, 125mcg Tablets Day In Place Of SECOND HAND PAPER MACHINE 100 mcg Dose Glucagon Emergency SQ or Im, february 3units E11.39 Karlie Sainz, 04/14/2018 1mg repeat in 15 M.D. Kit mins if not adequate response Cyclobenzaprine HCL take 1 tablet 90tabs M62.838 [place], 01/13/2018 10mg by mouth 3 Jenniferleigh, Tablets times a day as SECOND HAND PAPER MACHINE needed Victoza 1.8mg sq every 27units E11.65 [place], 09/19/2017 18mg/3ML Solution daily Klaudia Pen-Inject SECOND HAND PAPER MACHINE Insulin inject insulin 100units [place], 06/27/2017 Syringe/U-100/1ML/31G as directed Klaudia, X 5/16" SECOND HAND PAPER MACHINE 31G X 5/16" 1 ML Misc Blood Glucose Test test sugars 100units E11.65 [facility], 01/07/2017 four times a Jenfengferleifrancois, Strips day day e11.9 SECOND HAND PAPER MACHINE Pentips use as directed 90units [place], 12/31/2016 31G X 5 mm Misc with insulin Klaudia pen SECOND HAND PAPER MACHINE Furosemide Take 1 Tablet 90tabs R60.0 [place], 02/14/2015 20mg Tablets By Mouth Every Jenniferleigh, Morning SECOND HAND PAPER MACHINE Lantus inject 100 [id number] [place], 02/10/2015 100Unit/ML units twice a [facility], Solution day..... give SECOND HAND PAPER MACHINE enough for 3months and titrate as directed Losartan Potassium Take 1 Tablet 90tabs [place], 07/20/2013 25mg By Mouth Every Jenniferleigh, Tablets Day SECOND HAND PAPER MACHINE Janumet XR take 1 tablet 90tabs [place], 05/03/2013 100-1000mg by mouth every Jenniferleigh, Tablets ER 24HR day SECOND HAND PAPER MACHINE Simvastatin Take 1 Tablet 90tabs [place], 11/25/2011 20mg Tablets By Mouth Every Jenniferleigh, Day SECOND HAND PAPER MACHINE Mirena (52 MG) inserted Unknown 20mcg/24HR 07/2017, IUD removed 07/2022 Humalog Kwikpen use as needed 27units [place], for high blood Jenniferleigh, 100Unit/ML Solution sugar* maximum SECOND HAND PAPER MACHINE Pen-Inject daily dose is 30 units* History Medications Prednisone start at 6 tabs 21tabs M94.0 [place], 08/10/2019 - 10mg by mouth every Jenniferleigh, SECOND HAND PAPER MACHINE 08/17/2019 Tablets day and decrease by one tab each day until gone Anel Allergy 1 by mouth as 90tabs Bianca Braun, 04/28/2019 - 60mg needed PNP-BC, SECOND HAND PAPER MACHINE, Ibclc 08/10/2019 Tablets Nitrofurantoin 1 by mouth twice 20caps R39.15 Bianca Braun, 04/28/2019 - Monohyd Macro a day PNP-BC, SECOND HAND PAPER MACHINE, Ibclc 05/08/2019 100mg Capsules Diflucan take 1 by mouth 1tabs R39.15 Bianca Braun, 04/28/2019 - 150mg once you finish PNP-BC, SECOND HAND PAPER MACHINE, Ibclc 05/06/2019 Tablets your antibiotics if needed Eq Loratadine one PO qd 30tabs J30.9 [place], 02/16/2019 - 10mg Jennifercofield, SECOND HAND PAPER MACHINE 04/28/2019 Tablets Immunizations CPT Code Status Date Vaccine Lot # 07346 Given 08/10/2019 Influenza Virus Vaccine, Quadrivalent, 36 Mos+, [id number] .5ML 66299 Given 06/30/2018 Influenza Virus Vaccine, Quadrivalent, 36 Mos+, [id number] .5ML 08139 Given 07/15/2017 Influenza Virus Vaccine Quadrivalent Iiv4 [place] [id number] [address] Given 04/15/2017 Tdap injection 36569 Given 07/16/2016 Influenza Virus Vaccine, Quadrivalent, 36 Mos+, [id number] .5ML Q2038 Given 06/20/2015 Influenza Vaccine (Fluzone) Age 3 And Older [id number] 04170 Given 08/03/2013 flu vaccination 27740 Given 06/24/2012 flu vaccination 97627 Given 10/17/2009 H1N1 Immuniation Adminstration Vital Signs Date Vital Result Comment 08/17/2019 2:03pm BP Systolic Sitting Left Arm 122 mmHg BP Diastolic Sitting Left Arm 74 mmHg Body Temperature 97.8 F Heart Rate 84 /min Respiratory Rate 18 /min Height 71 inches 5'11" Weight 295.12 lb BMI (Body Mass Index) 41.2 kg/m2 BSA (Body Surface Area) 2.49 m2 [place] body weight in kilograms 70 kg 08/10/2019 1:13pm BP Systolic 148 mmHg BP Diastolic 88 mmHg Body Temperature 98.9 F Heart Rate 95 /min Respiratory Rate 18 /min Height 71 inches 5'11" Weight 294.00 lb BMI (Body Mass Index) 41.0 kg/m2 BSA (Body Surface Area) 2.48 m2 [place] body weight in kilograms 70 kg O2 % BldC Oximetry 99 % Ra Pain Level 5 sternum and bilateral ribs Results Test Acquired Date Facility Test Result H/L Range Note Urine Dipstick 08/17/2019 [facility] Inhouse Ua Leuko - Negative Ua Nitrite - Negative Ua Urobilinogen .2 0.2 - 1.0 E.U./dL Ua Protein - Negative Ua PH 6 Low 6.5-7.5 Ua Blood - Negative Ua Specific [place] 1.025 1.010-1.030 Ua Ketones - Negative Ua Bilirubin - Negative Ua Glucose - Negative [facility]10/[facility] Glycohemoglobin 6.9 % High 4.2-6.3 1, [address] (A1c) [place] [address] [phone] eAG 151 mg/dL Laboratory test 07/20/2019 [facility] Urine HCG NEGATIVE Negative 3, finding [address] (Qualitative) [address] [place] [address] [phone] Glycohemoglobin 05/18/[address] Glycohemoglobin 6.4 % High 4.2-6.3 5, A1c [address] (A1c) [address] [place] [address] [phone] eAG 137 mg/dL Laboratory 05/18/2019 [facility] Thyroid 1.62 uIU/mL Normal 0.30- 4.20 test finding [address] [place] [address] Hormone [phone] Urine Culture 04/28/2019 [facility] Urine URETHRAL [address] Culture [place], [place] [address] [phone] Quantity 10,000 - 50,000 <SEE NOTE> 8 Ua Routine 04/28/2019 [facility] Inhouse Ua Specific [place] 1.025 1.010-1.030 Ua PH 6.0 Low 6.5-7.5 Ua Color Yellow Yellow Ua Appera cloudy Ua WBC 1+ Ua Protein 0.15 High Negative Ua Glucose neg Negative Ua Ketones neg Negative Ua Bilirubin neg Negative Ua Urobilinogen 3.5 High 0.2 - 1.0 E.U./dL Ua Nitrite neg Negative Glycohemoglobin 02/16/[address] [facility] [address] Glycohemoglobin 5.8 % Normal 4.2-6.3 9, A1c [address] [facility] (A1c) [address] [place] [address] [phone] eAG 120 mg/dL Urine Dipstick 02/16/2019 [facility] Inhouse Ua Leuko - Negative Ua Nitrite - Negative Ua Urobilinogen .2 0.2 - 1.0 E.U./dL Ua Protein - Negative Ua PH 6 Low 6.5-7.5 Ua Blood - Negative Ua Specific [place] 1.015 1.010-1.030 Ua Ketones - Negative Ua Bilirubin - Negative Ua Glucose - Negative 1 M94.0 2 Elevated levels of HbA1c suggest the need for more aggressive treatment of glycemia. The [place] [employer] recommends that a primary goal of therapy should be a HbA1c of <7% and that physicians should re-evaluate the treatment regimen in patients with HbA1c values consistently >8%. 3 CONSULT 07/16/19 12:00 4 FIRST MORNING SPECIMENS GENERALLY CONTAIN THE HIGHEST CONCENTRATION OF HCG AND ARE RECOMMENDED FOR EARLY DETECTION OF . Method: Quidel QuickVue One-Step Immunoassay 5 E11.39 E03.9 6 Elevated levels of HbA1c suggest the need for more aggressive treatment of glycemia. The [place] [employer] recommends that a primary goal of therapy should be a HbA1c of <7% and that physicians should re-evaluate the treatment regimen in patients with HbA1c values consistently >8%. 7 R39.15 8 10,000 - 50,000 CFU/mL 9 E11.39 10 Elevated levels of HbA1c suggest the need for more aggressive treatment of glycemia. The [place] [employer] recommends that a primary goal of therapy should be a HbA1c of <7% and that physicians should re-evaluate the treatment regimen in patients with HbA1c values consistently >8%. Procedures Date Code Description Status 07/20/2019 05499 Repair umbilical hernia 5 or older; reducible Completed 01/29/2018 [id number] Diabetic Foot Exam Completed Medical Devices Description No Information Available Encounters Type Date Location Provider Dx Diagnosis Office Visit 08/17/2019 [facility] [place], E11.39 Type 2 diabetes w 2:00p [address] jon Rudolph diabetic SECOND HAND PAPER MACHINE ophthalmic complication K42.9 Umbilical hernia without obstruction or gangrene E03.9 Hypothyroidism, unspecified E78.5 Hyperlipidemia, unspecified M94.0 Chondrocostal junction syndrome [Tietze] Office Visit 08/10/2019 Family Sims M94.0 Chondrocostal 1:15p Medicine YANNA Barksdale junction syndrome RD [Tietze] E11.39 Type 2 diabetes w oth diabetic ophthalmic complication Z23 Encounter for immunization Office Visit 07/01/2019 Surgical [place], K42.9 Umbilical hernia 1:30p Office sia Piña M.D. obstruction or gangrene Office Visit 05/18/2019 [facility] [place], E11.39 Type 2 diabetes w 1:00p Medicine jon Barksdale diabetic RD SECOND HAND PAPER MACHINE ophthalmic complication E03.9 Hypothyroidism, unspecified E78.5 Hyperlipidemia, unspecified R10.815 Periumbilic abdominal tenderness Office Visit 04/28/2019 3:45p Family Medicine Bianca Braun, R39.[address] PNP-BC, SECOND HAND PAPER MACHINE, urination Ibclc R30.0 Dysuria Office Visit 02/16/2019 [facility] [place], E11.39 Type 2 diabetes w 8:45a Medicine YANNA Barksdale oth diabetic RD ophthalmic complication M94.0 Chondrocostal junction syndrome [Tietze] I10 Essential (primary) hypertension J30.9 Allergic rhinitis, unspecified Assessments Date Code Description Provider 08/17/2019 E11.39 Type 2 diabetes mellitus with Clune, Jenniferleigh, SECOND HAND PAPER MACHINE other diabetic ophthalmic comp 08/17/2019 K42.9 Umbilical hernia without Clune, Jenniferleigh, SECOND HAND PAPER MACHINE obstruction or gangrene 08/17/2019 E03.9 Hypothyroidism, unspecified Clune, Yaquelinfereduardogh, SECOND HAND PAPER MACHINE 08/17/2019 E78.5 Hyperlipidemia, unspecified Clune, Jenniferleigh, SECOND HAND PAPER MACHINE 08/17/2019 M94.0 Chondrocostal junction syndrome Clune, Yaquelinferjose, SECOND HAND PAPER MACHINE [Tietze] 08/10/2019 M94.0 Chondrocostal junction syndrome Clune, Jenniferleigh, SECOND HAND PAPER MACHINE [Tietze] 08/10/2019 E11.39 Type 2 diabetes mellitus with Clune, Jenniferleigh, SECOND HAND PAPER MACHINE other diabetic ophthalmic comp 08/10/2019 Z23 Encounter for immunization Klaudia Sims, SECOND HAND PAPER MACHINE 08/02/2019 K42.9 Umbilical hernia without Streetalena, Karina, PA obstruction or gangrene 07/20/2019 K42.9 Umbilical hernia without Ru Nesbitt M.D. obstruction or gangrene 07/01/2019 K42.9 Umbilical hernia without Ru Nesbitt M.D. obstruction or gangrene 05/18/2019 E11.39 Type 2 diabetes mellitus with Clune, Jenniferleigh, SECOND HAND PAPER MACHINE other diabetic ophthalmic comp 05/18/2019 E03.9 Hypothyroidism, unspecified Clune, Jenniferleigh, SECOND HAND PAPER MACHINE 05/18/2019 E78.5 Hyperlipidemia, unspecified Clune, Jenniferleigh, SECOND HAND PAPER MACHINE 05/18/2019 R10.815 Periumbilic abdominal tenderness Clune, Marniferleigh, SECOND HAND PAPER MACHINE 04/28/2019 R39.15 Urgency of urination Bianca Braun PNP-BC, SECOND HAND PAPER MACHINE, Ibclc 04/28/2019 R30.0 Dysuria Bianca Braun PNP-BC, SECOND HAND PAPER MACHINE, Ibclc 02/16/2019 E11.39 Type 2 diabetes mellitus with Clune, Jenniferleigh, SECOND HAND PAPER MACHINE other diabetic ophthalmic comp 02/16/2019 M94.0 Chondrocostal junction syndrome Clune, Jenniferleigh, SECOND HAND PAPER MACHINE [Tietze] 02/16/2019 I10 Essential (primary) hypertension Cldee, Jenniferleigh, SECOND HAND PAPER MACHINE 02/16/2019 J30.9 Allergic rhinitis, unspecified Klaudia Sims FNP Plan of Treatment Future Appointment(s):11/16/2019 1:15 pm - [facility] RD08/02/2019 - Karina Carrillo, PAK42.9 Umbilical hernia without obstruction or gangrene Functional Status Functional Condition Comment Date Status Glasses Active Mental Status Description No Information Available Referrals Refer to Reason for Referral Status Appt Date Ru Nesbitt MD abdominal pain - believes hernia, Closed 2018 abdominal ultrasound inconclusive [address] [place] [address] [phone]
[2019-08-21 18:05] VITALS: BP 104/62
[2019-08-21] MEDS ORDERED: Albuterol/Ipratropium NEB.SOL* Albuterol 2.5 MG/Ipratropium 0.5 MG 3 ML INH ONE (18:39)
[2019-08-21] MEDS ORDERED: predniSONE TAB* 20 MG PO ONE (18:39)
--- NOTE | 2019-08-21 18:55 | UC ---
Respiratory Complaint HPI - HPI Summary HPI Summary: C/O cough x 4 days, worsening, with chest wall pain and wheezing. Cough worse at night. Chest pain primarily anterior around sternum. Recent costochondritis. - History of Current Complaint Chief Complaint: UCGeneralIllness Stated Complaint: COUGH Time Seen by Provider: 08/21/19 18:33 Hx Obtained From: Patient Hx Last Menstrual Period: mirana ?: No Onset/Duration: Sudden Onset, Lasting Days - 4, Worse Since - onset Timing: Constant Severity Initially: Mild Severity Currently: Mild Pain Intensity: 2 Character: Cough: Nonproductive Aggravating Factors: Deep Breaths, Recumbent Position Alleviating Factors: Nothing Associated Signs And Symptoms: Positive: Pleuritic Chest Pain, Wheezing, URI, Nasal Congestion Related History: Seasonal Allergies - Allergies/Home Medications Allergies/Adverse Reactions: Allergies Allergy/AdvReac Type Severity Reaction Status Date / Time lisinopril Allergy Coughing Verified 08/21/19 18:05 PMH/Surg Hx/FS Hx/Imm Hx Endocrine History: Diabetes, Hypothyroidism Cardiovascular History: Hypertension Psychological History: Anxiety, Depression - Surgical History Surgical History: Yes Surgery Procedure, Year, and Place: Left Vitrectomy, 2018, [place]; , 2003; Tonsillectomy, ~1992 - Family History Known Family History: Positive: Cardiac Disease, Hypertension, Diabetes - Social History Occupation: Employed Full-time Lives: With Family Alcohol Use: Occasionally Alcohol Amount: 2 times a week Substance Use Type: None Smoking Status (MU): Former Smoker Type: Cigarettes Amount Used/How Often: 5 per day Length of Time of Smoking/Using Tobacco: 10/09 PPD x 15 Years Have You Smoked in the Last Year: Yes When Did the Patient Quit Smoking/Using Tobacco: 09/05/2015 - Immunization History Most Recent Influenza Vaccination: [id number] Most Recent Tetanus Shot: UNKNOWN Review of Systems All Other Systems Reviewed And Are Negative: Yes Constitutional: Positive: Fatigue ENT: Positive: Sore Throat Respiratory: Positive: Shortness Of Breath, Cough Cardiovascular: Positive: Chest Pain Is Patient Immunocompromised?: Yes - diabetic Physical Exam Triage Information Reviewed: Yes Appearance: No Pain Distress, Ill-Appearing, Pain Distress - with coughing, Obese Vital Signs: Initial Vital Signs Temp 98.9 F 08/21/19 18:01 Pulse 91 08/21/19 18:01 Resp 16 08/21/19 18:01 BP 104/62 08/21/19 18:01 Pulse Ox 100 08/21/19 18:01 Vital Signs Reviewed: Yes Eyes: Positive: Conjunctiva Inflamed - OU ENT: Positive: Hearing grossly normal, Nasal congestion - with allergic changes , TMs normal Neck: Positive: Supple, No Lymphadenopathy Respiratory: Positive: Lungs clear, Wheezing - expiratory wheezes with coughing. Cardiovascular Exam: Normal Musculoskeletal Exam: Normal Neurological Exam: Normal Psychological Exam: Normal Skin Exam: Normal Respiratory Course/Dx - Differential Dx/Diagnosis Differential Diagnosis/HQI/PQRI: Asthma, Exacerbation Of COPD, Lower Resp Infection, Sinusitis Provider Diagnosis: Upper respiratory infection, Bronchospasm, acute Discharge ED - Sign-Out/Discharge Documenting (check all that apply): Patient Departure All imaging exams completed and their final reports reviewed: No Studies - Discharge Plan Condition: Stable Disposition: HOME Prescriptions: predniSONE TAB* [Deltasone 20 MG TAB*] 60 mg PO DAILY #18 tab Patient Education Materials: Bronchospasm (ED), How to Use a Metered-Dose Inhaler (ED) Referrals: Yanet Sims NP [Primary Care Provider] - - Billing Disposition and Condition Condition: STABLE Disposition: Home
[2019-08-21] MEDS ORDERED: Albuterol HFA INHALER* 8 gm MDI INH ONE (18:58)
== END 2019-08-21 19:05 | disposition home or self-care (01) ==
LOC: UCCORT 17:05
DX: J06.9 Acute upper respiratory infection, unspecified (principal); J98.01 Acute bronchospasm; E11.9 Type 2 diabetes mellitus without complications; I10 Essential (primary) hypertension; Z88.8 Allergy status to other drugs, medicaments and biological substances; Z87.891 Personal history of nicotine dependence
CPT/HCPCS: 99213; A9270-GY; G0463; J7512

== ENCOUNTER 2019-08-28 16:30 | Emergency (ER) | payer BC ==
[2019-08-28 16:59] VITALS: BP 112/63
--- NOTE | 2019-08-28 17:36 | UC ---
Respiratory Complaint HPI - HPI Summary HPI Summary: 39-year-old woman comes in with a chief complaint of 10 days of upper respiratory tract infection symptoms. One week ago she was on prednisone for a bronchitis. She did improve some but then she's got worse again. She does have sputum and chest congestion. No recent fevers. Now she's having splinting right-sided chest pain for the last 1 day. - History of Current Complaint Chief Complaint: UCGeneralIllness Stated Complaint: COUGH,CONGESTION Time Seen by Provider: 08/28/19 16:52 Hx Last Menstrual Period: mirena Pain Intensity: 3 - Allergies/Home Medications Allergies/Adverse Reactions: Allergies Allergy/AdvReac Type Severity Reaction Status Date / Time lisinopril Allergy Coughing Verified 08/28/19 16:50 Home Medications: Home Medications Albuterol HFA INHALER* [Ventolin HFA Inhaler*] 2 puff INH Q6H PRN 08/28/19 [ History Confirmed 08/28/19] Levonorgestrel (Iud) [Mirena IUD] 20 mcg IU ONCE 08/28/19 [History Confirmed ] PMH/Surg Hx/FS Hx/Imm Hx Previously Healthy: Yes Endocrine History: Diabetes, Hypothyroidism, Dyslipidemia Cardiovascular History: Hypertension Respiratory History: Asthma - Surgical History Surgical History: Yes Surgery Procedure, Year, and Place: Left Vitrectomy, 2018, [place]; , 2003; Tonsillectomy, ~1992 - Family History Known Family History: Positive: Cardiac Disease, Hypertension, Diabetes - Social History Alcohol Use: Occasionally Alcohol Amount: 2 times a week Substance Use Type: None Smoking Status (MU): Former Smoker Type: Cigarettes Amount Used/How Often: 5 per day Length of Time of Smoking/Using Tobacco: 10/09 PPD x 15 Years Have You Smoked in the Last Year: Yes When Did the Patient Quit Smoking/Using Tobacco: 09/05/2015 - Immunization History Most Recent Influenza Vaccination: [id number] Most Recent Tetanus Shot: UNKNOWN Review of Systems All Other Systems Reviewed And Are Negative: Yes Constitutional: Positive: Other - SEE HPI Skin: Positive: Negative Eyes: Positive: Negative ENT: Positive: Negative Respiratory: Positive: Shortness Of Breath, Cough, Other - SEE HPI Cardiovascular: Positive: Chest Pain - SEE HPI Gastrointestinal: Positive: Negative Motor: Positive: Negative Neurovascular: Positive: Negative Musculoskeletal: Positive: Negative Neurological: Positive: Negative Psychological: Positive: Negative Is Patient Immunocompromised?: No Physical Exam Triage Information Reviewed: Yes Appearance: Well-Appearing, No Pain Distress, Well-Nourished Vital Signs: Initial Vital Signs Temp 98.7 F 08/28/19 16:55 Pulse 95 08/28/19 16:55 Resp 15 08/28/19 16:55 BP 112/63 08/28/19 16:55 Pulse Ox 100 08/28/19 16:55 Vital Signs Reviewed: Yes Eye Exam: Normal Eyes: Positive: Conjunctiva Clear ENT: Positive: Pharynx normal, Nasal congestion, TMs normal Neck: Positive: Supple Respiratory: Positive: Lungs clear, Normal breath sounds, No respiratory distress, Other: - Mild tenderness to palpation right lateral posterior ribs. No rash seen. Cardiovascular: Positive: RRR Musculoskeletal: Positive: Strength Intact, ROM Intact, No Edema - No calf tenderness Neurological: Positive: Alert Psychological: Positive: Age Appropriate Behavior Skin Exam: Normal Respiratory Course/Dx - Course Course Of Treatment: Stone Polisher Hand: Keila Mcclain S ([id number]) Director Market Intelligence: ANSELMO (ANSELMO) Report Date: 08/28/2019 17:34:00 Report Status: Final Start of Report Content Patient Name: PEPE PINO Medical Record#: [id number] Ordering Physician: Jeff Herring MD Acct.#: [id number] : 02/1980 Age: 39 Sex: F Location: [facility]RGENT [facility]ARE [facility] Exam Date: 08/28/191706 ADM Status: REG ER Order Information: CHEST PA LAT 2 VWS Accession Number: [id number] CPT: 31241 Indication: Cough. 2 views of the chest demonstrate no mediastinal shift. Heart is of normal size and configuration. Lung zamora are clear. IMPRESSION: No active cardiopulmonary disease is noted. <Electronically signed by Keila Mcclain MD in [place]> 08/28/191729 Dictated By: Keila Mcclain MD Dictated Date/Time: 1727 Transcribed Date/Time: 08/28/191727 Copy to: CC:Klaudia RAINES; Jeff Herring MD Imaging - [facility] Imaging - [place] [facility] Imaging - [facility] [address] [facility] [address] ph ) ph ([phone]) ph ([phone]) End of Report Content I discussed the x-rays with the patient. No pneumonia seen. With 10 days of symptoms we will treat with azithromycin. I wrote prescription for prednisone to be used if needed however the patient wishes to avoid it could very to her diabetes. She'll use prednisone if necessary. She will continue to use the albuterol as needed. Patient has no calf tenderness or calf swelling is not on any estrogens and at this time is low risk for pulmonary embolus. We did discuss the signs and symptoms of pulmonary embolus. Follow-up with her primary care doctor get reevaluated sooner if worse any questions or concerns. - Differential Dx/Diagnosis Provider Diagnosis: Chest pain, Bronchitis with bronchospasm Discharge ED - Sign-Out/Discharge Documenting (check all that apply): Patient Departure All imaging exams completed and their final reports reviewed: No Studies - Discharge Plan Condition: Stable Disposition: HOME Prescriptions: Azithromyxin TURNER (NF) [Z-Turner (Zithromax) 250 mg tabs #6] 2 tab PO .TODAY, THEN 1 DAILY #6 tab predniSONE TAB* [Deltasone 20 MG TAB*] 40 mg PO DAILY #10 tab Patient Education Materials: Acute Bronchitis (ED), Pleurisy (DC), Chest Pain ( ED) Referrals: Yanet Sims NP [Primary Care Provider] - Additional Instructions: FOLLOW UP WITH YOUR DOCTOR IF NOT COMPLETELY IMPROVED. GET REEVALUATED SOONER IF NOT IMPROVING OR WORSE; PAIN, SHORTNESS OF BREATH, YOU FEEL ILL OR ANY QUESTIONS OR CONCERNS. - Billing Disposition and Condition Condition: STABLE Disposition: Home
== END 2019-08-28 17:53 | disposition home or self-care (01) ==
LOC: UCCORT 16:30
DX: J45.909 Unspecified asthma, uncomplicated (principal); R07.9 Chest pain, unspecified; R09.81 Nasal congestion; E11.9 Type 2 diabetes mellitus without complications; I10 Essential (primary) hypertension; Z79.899 Other long term (current) drug therapy; Z87.891 Personal history of nicotine dependence
CPT/HCPCS: 71046; 99212; G0463